=== PATIENT | female | born 1965 | race Caucasian/White ===

== ENCOUNTER 2016-09-23 09:08 | Emergency (ER) | payer OTHER ==
[~2016-09-23] VITALS: Ht 162.6 cm; Wt 70.3 kg
[2016-09-23 09:29] VITALS: BP 143/98
[2016-09-23] MEDS ORDERED: PROPRANOLOL HCL10 M1 PO (09:53)
[2016-09-23] MEDS ORDERED: SEROQUEL300 M1 PO (09:53)
[2016-09-23] MEDS ORDERED: VALIUM2 M1 PO (09:53)
[2016-09-23] MEDS ORDERED: LEXAPRO10 M1 PO (09:53)
--- NOTE | 2016-09-23 09:54 | ED GENERAL ADULT ---
History of Present Illness General Chief Complaint: General Adult Stated Complaint: REFILL MEDS Source: patient Exam Limitations: no limitations Vital Signs & Intake/Output Vital Signs & Intake/Output Vital Signs Date Time Temp Pulse Resp B/P Pulse O2 O2 Flow FiO2 Ox Delivery Rate 09/23 0929 97.0 81 20 143/98 97 Room Air Allergies Coded Allergies: aspirin (Severe, DIFF BREATHING 09/23/16) morphine (Severe, DIFFICULTY BREATHING 09/23/16) Uncoded Allergies: ?SOMETHING IN EPIDURAL (Severe, HYPOTENSIVE AND SWELLING 11/25/10) NARCAINE (Severe, RESPIRATORY DIFFICULTY 09/23/16) SEASONAL AND ENVIRONMENTAL (11/25/10) Reconcile Medications Diazepam (Valium) 2 MG TABLET 1 TAB PO BID ANXIETY Escitalopram Oxalate (Lexapro) 10 MG TABLET 1 TAB PO DAILY DEPRESSION Propranolol HCl 10 MG TABLET 1 TAB PO BID DEPRESSION Quetiapine Fumarate (Seroquel) 300 MG TABLET 2 TAB PO QPM DEPRESSION Triage Note: TRIAGE: PT TO ER C/C REQUESTING REFILL MEDICATIONS S/P RECENT MOVE FROM [place]. [facility] HAD INTAKE APPT AT [facility] THIS MORNING BUT WAS ADVISED THEY COULD NOT REFILL THE PRESCRIPTION YET, WAS REFERRED TO URGENT CARE [facility]CROSS FROM [facility]. [facility] THEY TOLD HER THEY DON'T PRESCRIBE PSYCH MEDS AND WAS REFERRED TO ER. TAKES: SEROQUEL 300 MG X 2 TABS QPM LEXAPRO 10 MG DAILY PROPANOLOL 10 MG BID VALIUM 2 MG TIDPRN Triage Nurses Notes Reviewed? yes HPI: Patient recently moved here from [place]. Patient has appointment with [facility] this morning for an initial evaluation. Patient was told that she could not receive refills for her medications after just the initial visit. Patient was then sent to a walk-in center. The walk-in centers told her that they could not refill medications and that she needs to go to the emergency room. Patient denies any suicidal or homicidal ideations. Patient denies any hallucinations. Past History Travel History Traveled to [place] past 21 day No Medical History Any Pertinent Medical History? 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 No Review of Systems Review of Systems Constitutional: Reports: no symptoms. Respiratory: Reports: no symptoms. Cardiovascular: Reports: no symptoms. GI: Reports: no symptoms. Neurological/Psychological: Reports: no symptoms. Immunologic/Allergic: Reports: no symptoms. Physical Exam Physical Exam General Appearance: well developed/nourished, alert, awake Eyes: Bilateral: PERRL, EOMI. Neck: normal inspection, supple, full range of motion Respiratory: normal breath sounds, chest non-tender, no respiratory distress, lungs clear Cardiovascular: regular rate/rhythm, normal peripheral pulses Neurologic/Psych: no motor/sensory deficits, awake, alert, oriented x 3, normal gait, normal mood/affect Core Measures ACS in differential dx? No CVA/TIA Diagnosis: No Severe Sepsis Present: No Septic Shock Present: No Progress Differential Diagnoses I considered the following diagnoses in my evaluation of the patient: [ Medication refill] Plan of Care: Refill medicine Initial ED EKG: none Departure Departure Disposition: HOME OR SELF CARE Condition: Stable Clinical Impression Primary Impression: Medication refill Referrals: UNKNOWN (PCP/Family) Additional Instructions: FOLLOW UP WITH [facility] RETURN FOR ANY [facility]NER[facility] Departure Forms: Customer Survey General Discharge Information Prescriptions: Current Visit Scripts Quetiapine Fumarate (Seroquel) 2 TAB PO QPM #60 TAB Escitalopram Oxalate (Lexapro) 1 TAB PO DAILY #30 TAB Propranolol HCl 1 TAB PO BID #60 TAB Diazepam (Valium) 1 TAB PO BID #90 TAB Critical Care Note Critical Care Note Critical Care Time: non-applicable
== END 2016-09-23 09:56 ==
LOC: ERH 09:08
DX: Z76.0 Encounter for issue of repeat prescription (principal)
CPT/HCPCS: 99281

== ENCOUNTER 2016-10-19 06:53 | Emergency (ER) | payer OTHER ==
[~2016-10-19] VITALS: Ht 162.6 cm; Wt 72.6 kg
[~2016-10-19 06:53] MED LIST: LEXAPRO10 M1 PO; PROPRANOLOL HCL10 M1 PO; SEROQUEL300 M1 PO; VALIUM2 M1 PO
[2016-10-19 07:10] VITALS: BP 145/87
--- NOTE | 2016-10-19 07:17 | ED GENERAL ADULT ---
History of Present Illness General Chief Complaint: General Adult Stated Complaint: REQUEST MED REFIL APT TO [facility] Source: patient, old records Exam Limitations: no limitations Vital Signs & Intake/Output Vital Signs & Intake/Output Vital Signs Date Time Temp Pulse Resp B/P Pulse O2 O2 Flow FiO2 Ox Delivery Rate 10/19 0710 97.5 100 20 145/87 96 Room Air Allergies Coded Allergies: aspirin (Severe, DIFF BREATHING 09/23/16) morphine (Severe, DIFFICULTY BREATHING 09/23/16) Uncoded Allergies: ?SOMETHING IN EPIDURAL (Severe, HYPOTENSIVE AND SWELLING 11/25/10) NARCAINE (Severe, RESPIRATORY DIFFICULTY 09/23/16) SEASONAL AND ENVIRONMENTAL (11/25/10) Reconcile Medications Diazepam (Valium) 2 MG TABLET 1 TAB PO BID ANXIETY Escitalopram Oxalate (Lexapro) 10 MG TABLET 1 TAB PO DAILY DEPRESSION Escitalopram Oxalate (Lexapro) 10 MG TABLET 1 TAB PO DAILY DEPRESSION Propranolol HCl 10 MG TABLET 1 TAB PO BID DEPRESSION Propranolol HCl 10 MG TABLET 1 TAB PO BID DEPRESSION Quetiapine Fumarate (Seroquel) 300 MG TABLET 2 TAB PO QPM DEPRESSION Quetiapine Fumarate (Seroquel) 300 MG TABLET 2 TAB PO QPM DEPRESSION Triage Note: PT TO ED REQEUSTING MED REFILL OF "PSYCH MEDS". Triage Nurses Notes Reviewed? yes HPI: Patient presents requesting refill of her medications. Patient is new patient to [facility] and she had her first appointment but she is scheduled for her second and they will not refill her medications until after her second visit. Patient denies any suicidal or homicidal ideations. Patient states that she still has more of the Valium but needs the propranolol, Lexapro and Seroquel. Past History Travel History Traveled to [place] past 21 day No Medical History Any Pertinent Medical History? 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 No Review of Systems Review of Systems Constitutional: Reports: no symptoms. Respiratory: Reports: no symptoms. Cardiovascular: Reports: no symptoms. GI: Reports: no symptoms. Musculoskeletal: Reports: no symptoms. Neurological/Psychological: Reports: no symptoms. Immunologic/Allergic: Reports: no symptoms. Physical Exam Physical Exam General Appearance: well developed/nourished, alert, awake, anxious Head: atraumatic Eyes: Bilateral: PERRL, EOMI. Respiratory: normal breath sounds, chest non-tender, no respiratory distress, lungs clear Cardiovascular: regular rate/rhythm, normal peripheral pulses Neurologic/Psych: no motor/sensory deficits, awake, alert, oriented x 3, normal gait, normal mood/affect Core Measures ACS in differential dx? No CVA/TIA Diagnosis: No Severe Sepsis Present: No Septic Shock Present: No Progress Differential Diagnoses I considered the following diagnoses in my evaluation of the patient: [MED REFIL ] Plan of Care: REFILL MEDS Initial ED EKG: none Departure Departure Disposition: HOME OR SELF CARE Condition: Stable Clinical Impression Primary Impression: Medication refill Referrals: PATIENT HAS NO PRIMARY CARE DR (PCP/Family) Additional Instructions: follow up with [facility] Departure Forms: Customer Survey General Discharge Information Prescriptions: Current Visit Scripts Escitalopram Oxalate (Lexapro) 1 TAB PO DAILY #30 TAB Propranolol HCl 1 TAB PO BID #60 TAB Quetiapine Fumarate (Seroquel) 2 TAB PO QPM #60 TAB Critical Care Note Critical Care Note Critical Care Time: non-applicable
[2016-10-19] MEDS ORDERED: PROPRANOLOL HCL10 M1 PO (07:18)
[2016-10-19] MEDS ORDERED: LEXAPRO10 M1 PO (07:18)
[2016-10-19] MEDS ORDERED: SEROQUEL300 M1 PO (07:18)
== END 2016-10-19 07:22 ==
LOC: ERH 06:53
DX: Z76.0 Encounter for issue of repeat prescription (principal)
CPT/HCPCS: 99281

== ENCOUNTER 2017-01-20 21:12 | Inpatient (IN) | payer OTHER ==
[~2017-01-20] VITALS: Ht 157.5 cm; Wt 79.8 kg
--- NOTE | 2017-01-20 22:02 | NUR ---
PER PT MOVED TO [facility] AND GOT A JOB RAN OUT OF [employer] AND HAS NOT BEEN RIGHT SINCE APPROX 1.5 MONTHS. HAVING VISUAL AND AUDITORY HALLUCINATIONS NO SI NO HI. PT REPORTS SHE JUST WANTS TO GET BETTER. JUST FLEW IN FROM [place]
--- NOTE | 2017-01-20 22:09 | ED PSYCHIATRIC COMPLAINT ---
See Addendum History of Present Illness General Chief Complaint: Psychiatric Related Complaint Stated Complaint: NEEDS PSYCH EVAL Source: patient, old records Exam Limitations: no limitations Vital Signs & Intake/Output Vital Signs & Intake/Output Vital Signs Date Time Temp Pulse Resp B/P B/P Pulse O2 O2 Flow FiO2 Mean Ox Delivery Rate 01/20 2203 97.8 96 22 162/96 98 ED Intake and Output 01/21 0000 01/20 1200 Intake Total Output Total Balance Patient 148 lb Weight Allergies Coded Allergies: aspirin (Severe, DIFF BREATHING 09/23/16) morphine (Severe, DIFFICULTY BREATHING 09/23/16) procaine (ANAPHYLAXIS 01/20/17) Uncoded Allergies: ?SOMETHING IN EPIDURAL (Severe, HYPOTENSIVE AND SWELLING 11/25/10) Reconcile Medications Escitalopram Oxalate (Lexapro) 10 MG TABLET 1 TAB PO DAILY DEPRESSION Propranolol HCl 10 MG TABLET 1 TAB PO BID TREMORS (Reported) Triage Note: PER PT MOVED TO [facility] AND GOT A JOB RAN OUT OF [facility] AND HAS NOT BEEN RIGHT SINCE APPROX 1.5 MONTHS. HAVING VISUAL AND AUDITORY HALLUCINATIONS NO SI NO HI. PT REPORTS SHE JUST WANTS TO GET BETTER. JUST FLEW IN FROM [place] Triage Nurses Notes Reviewed? yes HPI: Patient presents with auditory and visual hallucinations. Patient states that she has had a recent admission to a psychiatric institution in [place] for the same. Patient states that she was given Latuda but then was not given a prescription home with. Patient states that her symptoms really started when she moved from [place] to [facility]. Patient states that she was on Seroquel but that seemed to stop working. Patient states that she was suicidal while in [place] but no longer is. Patient denies any homicidal ideations. Patient has been off all of her medications. Past History Travel History Traveled to [facility] past 21 day No Medical History Any Pertinent Medical History? 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 No Review of Systems Review of Systems Constitutional: Reports: no symptoms. EENTM: Reports: no symptoms. Respiratory: Reports: no symptoms. Cardiovascular: Reports: no symptoms. GI: Reports: no symptoms. Genitourinary: Reports: no symptoms. Musculoskeletal: Reports: no symptoms. Skin: Reports: no symptoms. Neurological/Psychological: Reports: see HPI. Hematologic/Endocrine: Reports: no symptoms. Immunologic/Allergic: Reports: no symptoms. All Other Systems: Reviewed and Negative Physical Exam Physical Exam General Appearance: well developed/nourished, mild distress Head: atraumatic, normal appearance Eyes: Bilateral: PERRL, EOMI. Ears, Nose, Throat: normal pharynx, normal ENT inspection, hearing grossly normal Neck: normal inspection, supple, full range of motion Respiratory: normal breath sounds, no respiratory distress, lungs clear Cardiovascular: regular rate/rhythm, normal peripheral pulses Gastrointestinal: normal bowel sounds, soft, non-tender Extremities: normal range of motion Neurological/Psychiatric: no motor/sensory deficits, awake, alert, calm, oriented x 3 Appearance/Memory/Insight: appropriate appearance, appropriate insight Behavoir/Eye Contact/Speech: normal speech, good eye contact Thoughts/Hallucinations: normal thought pattern, auditory hallucinations Skin: intact, normal color, warm/dry SAD PERSONS Done? CRISIS CONSULT OBTAINED Progress Differential Diagnosis: drug intoxication, drug overdose, drug withdrawal, electrolyte abnormality Plan of Care: Orders Procedure Date/time Status ED CRISIS PSYCH CONSULT 01/20 2222 Active URINE DRUGS OF ABUSE 01/20 2209 Complete URINALYSIS 01/20 2209 Complete ETHANOL 01/20 2209 Complete COMPREHENSIVE METABOLIC PANEL 01/20 2209 Complete CBC WITHOUT DIFFERENTIAL 01/20 2209 Complete Current Medications Sig/Rosalio Start time Last Medication Dose Stop Time Status Admin Potassium Chloride 40 MEQ ONCE ONE 01/21 15 UNVr (K-Dur) 01/21 0016 Laboratory Tests 01/20/17 2310: Urine Opiates Screen < 100.00, Methadone Screen < 40, Barbiturate Screen < 60, Ur Phencyclidine Scrn < 6.00, Amphetamines Screen 127, U Benzodiazepines Scrn < 85, Urine Cocaine Screen < 50, Urine Cannabis Screen < 5.00, Urine Color YEL, Urine Clarity HAZY H, Urine pH 6.0, Ur Specific [place] <= 1.005, Urine Protein NEG, Urine Ketones NEG, Urine Nitrite NEG, Urine Bilirubin NEG, Urine Urobilinogen 0.2, Ur Leukocyte Esterase SMALL H, Ur Microscopic SEDIMENT EXAMINED, Urine WBC RARE, Ur Epithelial Cells MOD H, Urine Bacteria RARE H, Urine Hemoglobin NEG, Urine Glucose NEG 01/20/17 2250: Anion Gap 12, Estimated GFR > 60, BUN/Creatinine Ratio 13.3, Glucose 96, Calcium 9.4, Total Bilirubin 0.7, AST 29, ALT 63 H, Alkaline Phosphatase 156 H, Total Protein 7.2, Albumin 4.2, Globulin 3.0, Albumin/Globulin Ratio 1.4, CBC w Diff NO MAN DIFF REQ, RBC 4.68, MCV 89.5, MCH 30.1, RDW 13.4, MPV 7.4, Gran % 56.3, Lymphocytes % 28.3, Monocytes % 11.0 H, Eosinophils % 4.0, Basophils % 0.4, Absolute Granulocytes 4.9, Absolute Lymphocytes 2.5, Absolute Monocytes 1.0 H, Absolute Eosinophils 0.3, Absolute Basophils 0, PUBS MCHC 33.7, Serum Alcohol < 10.0 Departure Departure Disposition: STILL A PATIENT Condition: Stable Clinical Impression Primary Impression: Bipolar 1 disorder Secondary Impressions: Hypokalemia Referrals: PATIENT HAS NO PRIMARY CARE DR (PCP/Family) Departure Forms: Customer Survey General Discharge Information
[2017-01-20] MEDS ORDERED: PROPRANOLOL HCL10 M1 PO (22:49)
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
--- NOTE | 2017-01-20 22:55 | NUR ---
PT WILL BE CHANGED AND MOVED TO ROOM 14 WHEN AVAILABLE. INSTRUCTED ON NEED FOR URINE SAMPLE AT THIS TIME.
[2017-01-20 22:56] LABS: ABSOLUTE BASOPHIL COUNT 0 /CUMM (0.0-0.2); ABSOLUTE EOSINOPHIL COUNT 0.3 /CUMM (0.0-0.7); ABSOLUTE GRANULOCYTE CT 4.9 /CUMM (1.4-6.5); ABSOLUTE LYMPH COUNT 2.5 /CUMM (1.2-3.4); BASOPHIL % 0.4 % (0.0-2.0); GRANULOCYTE % 56.3 % (42.2-75.2); HEMATOCRIT 41.9 % (37-47); MEAN CORPUSCULAR HGB 30.1 PG (27.0-31.0); MEAN CORPUSCULAR HGB CONC 33.7 G/DL (33.0-37.0); MEAN CORPUSCULAR VOLUME 89.5 FL (81.0-99.0); MEAN PLATELET VOLUME 7.4 FL (7.4-10.4); PLATELET COUNT 319 /CUMM (130-400); RBC DISTRIBUTION WIDTH 13.4 % (11.5-14.5); RED BLOOD CELL CT 4.68 /CUMM (4.20-5.40); WHITE BLOOD CELL COUNT 8.8 /CUMM (4.8-10.8)
--- NOTE | 2017-01-20 23:06 | NUR ---
REPORT TO CINDY Mcnamara RN AND ANSWERED ALL QUESTIONS.
--- NOTE | 2017-01-21 01:31 | NUR ---
PT AWAKENED FRO VS MED WITH PO POTASSIUM ORDERED, PER REQUEST PT PREFERS NICORETTE GUM RATHER THAN PATCH, PT REPORTEDLY SMOKES 2 PACKS PER DAY.
--- NOTE | 2017-01-21 06:10 | NUR ---
SPENT A COMF NIGHT NO NOTED AH/[facility] WILL MONITOR
--- NOTE | 2017-01-21 07:27 | NUR ---
ASSUMED CARE OF PT AT THIS TIME PT APPEARS TO BE SLEEPING AT THIS TIME WITH REGULAR RESPIRATIONS NOTED AND EQUAL CHEST RISE AND FALL NOTED. SITTER PRESENT FOR SAFETY/OBSERVATION. AWAITING CRISIS EVAL/DISPO TODAY
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
--- NOTE | 2017-01-21 09:28 | NUR ---
PT ASKING FOR PAIN MED NURSE INFORMED
--- NOTE | 2017-01-21 09:30 | NUR ---
DR TAMAYO INFORMED OF PT REQUEST FOR PAIN MEDICATION
--- NOTE | 2017-01-21 09:46 | NUR ---
MEDICATED WITH IBUPROPHEN PER SEP. PT REQUESTING SAME FOR HEADACHE
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
--- NOTE | 2017-01-21 10:57 | NUR ---
PHARMACY CALLED FOR MEDS - [facility]FF NURSE [facility]ESTHET[facility] MEDS IN 15 MIN.
--- NOTE | 2017-01-21 11:12 | NUR ---
REPORT GIVEN TO ESDRAS PAEZ
--- NOTE | 2017-01-21 11:20 | NUR ---
ASSUMED CARE OF THIS PT FROM ESDRAS LE. PT HAS MEDS DUE AND PHARMACY WILL HAVE HTEM READY IN 10 MINUTES.
--- NOTE | 2017-01-21 11:51 | NUR ---
PT MEDICATED WITH SEROQUEL 100MG, INDERAL 10MG AND TYLENOL 650MG FOR RIB PAIN. PT ASKED WHY SHE WASN'T GETTING HER LEXAPRO. PT CALM AND COOPERATIVE AT THIS TIME. SITTER AT DOOR. PT AWAITING TRANSFER DOWN TO [facility].
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
--- NOTE | 2017-01-21 13:40 | NUR ---
PT AWOKEN AND MEDICATED WITH POTASSIUM 40mEQ. PT ADVISED THAT SHE NEEDED TO TAKE THIS MEDICATION BEFORE SHE CAN BE TRANSFERRED DOWNSTAIRS. SITTER AT DOOR.
--- NOTE | 2017-01-21 14:55 | NUR ---
PT ASLEEP AT THIS TIME. RESPIRATIONS EQUAL AND UNLABORED. CRISIS TO CALL REPORT TO CPS. SITTER AT DOOR.
--- NOTE | 2017-01-21 16:15 | NUR ---
PT SITTING UP IN BED EATING DINNER TRAY. PT CALM AND COOPERATIVE. PT IS ANTICIPATING TRANSFER DOWN TO [facility] THIS EVENING. SITTER AT DOOR.
[2017-01-21] MEDS ORDERED: VALIUM2 M1 PO (18:40)
[2017-01-21] MEDS ORDERED: SEROQUEL XR300 M1 PO (18:42)
[2017-01-21] MEDS ORDERED: LATUDA120 M1 PO (18:43)
--- NOTE | 2017-01-21 18:47 | NUR ---
PT IS CALM, PLEASANT AND COOPERATIVE AND ONLY COMPLAINT IS "I'M EXHAUSTED", WHEN ASKED DIRECTLY DENIES SI/HI/HALLUCINATIONS AND WOULD INFORM STAFF IF ANY OF THAT CHANGED, FEELS SAFE HERE AND MOTIVATED FOR TREATMENT. MEDICATIONS RECONCILED WITH PT. MOOD IS STABLE WITH FLAT AFFECT, REPORTS NOT FEELING WELL AND MORE DEPRESSED AND WANTING TREATMENT AND HER MEDICATION REGIMENT ADDRESSED. NO ANXIETY OR AGITATION REPORTED OR OBSERVED, RESTING QUIETLY IN BED.
[2017-01-21 19:45] VITALS: BP 101/63
--- NOTE | 2017-01-21 21:14 | NUR ---
PT IS MOSTLY ISOLATIVE AND WITHDRAWN THIS EVENING, REMAINING IN BED FOR MOST OF SHIFT. COOPERATIVE AND COMPLIANT WITH STAFF. MINIMAL INTERACTION WITH PEERS. NO COMPLAINTS OR SI REPORTED. PT HAS A STABLE MOOD AND FLAT/CONSTRICTED AFFECT.
--- NOTE | 2017-01-22 04:08 | NUR ---
AWAKE COUPLES TIMES DURING THE NIGHT.
[2017-01-22 08:34] VITALS: BP 120/68
[2017-01-22 12:29] VITALS: BP 100/64
--- NOTE | 2017-01-22 13:02 | NUR ---
PATIENT IS CALM AND COOPERATIVE WITH STAFF AND UNIT RULES. PATIENT ISOLATIVE STAYED IN ROOM MOST OF THE DAY, DID NOT GO TO GROUPS. NORMAL APETITE. STABLE MOOD WITH FLAT AFFECT. NO REPORTS OF SI.
--- NOTE | 2017-01-22 13:19 | CPS MD/APRN INITIAL ASSE PSYCH ---
Psychiatric Admission Printing Assistant's Note Reviewed: Yes Patient Seen and Examined: Yes Identifying Information: Patient is a 51-year-old , female with a self-reported history of bipolar disorder who self presented to the [facility] ED on 01/21/17 for auditory hallucinations and thoughts of self harm. Patient was voluntarily admitted to inpatient psychiatry. Chief Complaint: "I need new medications and a place to live." Reaction to Hospitalization: neutral History of Present Illness Onset of Illness: Over 20 years ago, per patient Circumstances Leading to Admission: Patient reports she recently returned from [place] where her car broke down. 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 She did not elaborate on circumstances. Stated that from [place], police put her on a plane and flew her back to [place]. Also stated that the same police "jumped me." She reported that the police, FBI and her ex- are involved in a conspiracy against her. Stated that the FBI placed a "tracking" chip in her head s/p brow-lift surgery "years ago". Patient admitted to ongoing auditory and visual hallucinations. Stated she occasionally has command auditory hallucinations. She denied these at present but did admit to experiencing current AH and VH. She would not describe the content of AVH. She denies present SI/HI. + paranoia and delusional thought content. Problem(s) Justifying Need for Admission: +AH/VH, SI, off medications, no outpatient providers Past Psychiatric History Past Diagnosis(es)- if any: Bipolar disorder with psychotic features Past Precipitating Factors- if any: unknown - Include inpatient and outpatient treatment Treatment History: --hx of multiple inpatient psychiatric hospitalizations in various states including, [place] recently, [place] last year and also [place] previously. --reports outpatient tx at [facility] > 18 years ago. --denies hx of substance abuse tx --no current outpatient tx; last seen by a psychiatrist in [place] x 4 months ago per her report. History of Suicide Attempts or Gestures patient reports 1 prior suicide attempt by OD on "28 Klonopin" in [place] about a year ago. denied further attempts. Substance Abuse History: --denied alcohol and illicit drug use. --reports smoking 2 ppd of cigarettes (declined nicotine patch, open to nicotine gum). Allergies: Coded Allergies: aspirin (Severe, DIFF BREATHING 09/23/16) morphine (Severe, DIFFICULTY BREATHING 09/23/16) procaine (ANAPHYLAXIS 01/20/17) Uncoded Allergies: ?SOMETHING IN EPIDURAL (Severe, HYPOTENSIVE AND SWELLING 11/25/10) Home Med List: Patient reports she ran out of Lexapro, Seroquel and Inderal 2 months ago. Since , has not been on medications. 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 - #1 Recognizing dangerous situations. - #2 Coping Skills. - #3 Basic information about quitting. Status of Tobacco Cessation Counseling: #1, #2 AND #3 Completed Cessation Med Status Nicotine Gum Ordered Alcohol Screening - ETOH screen POS if BAL >=80 or Audit-C>= M4/F3 Audit-C Score from Diag Assess: 0 Blood Alcohol Level: Laboratory Tests 01/20 2250 Toxicology Serum Alcohol (<10 MG/DL) < 10.0 Alcohol Use Screening Results: Neg per Audit C &/or BAL - If ETOH counseling indicated - the following topics are required. - #1 Express concern about the patient's - drinking at unhealthy levels, include informing - of national norms for moderate drinking: - men <= 14 drinks/week, max 4 drinks/occasion - women <= 7 drinks/week, max 3 drinks/occasion - #2 Providing feedback, including linking alcohol to - negative physical effects (liver injury, hypertension) - negative emotional effects (relationship problems and - depression) - negative occupational consequences (reduced work - performance) - #3 Advising the patient to abstain from alcohol or - to drink below national norms for moderate drinking - (as listed above). Status of ETOH Use Counseling: #1, #2 AND #3 Completed. Metabolic Screening - Screen if on a Neuroleptic Medication - Metabolic screening should include: - Blood Pressure, BMI, Glucose or Hgb A1c, & a - Lipid profile from within the past 365 days. Metabolic Screening ([X]) Not Applicable, patient not on a neuroleptic. OR () Patient on a neuroleptic(s) . Enter below results for Glucose or Hemoglobin A1C, and lipid panel if obtained during the last 365 days. BMI: Blood Pressure: 100/64 Laboratory Results (If applicable): Lab Cholesterol 206 MG/DL H 01/20/17 2250 Cholesterol/HDL Ratio 5 % H 01/20/17 2250 Glucose 96 mg/dL 01/20/17 2250 HDL Cholesterol 42 mg/dL 01/20/17 2250 LDL Cholesterol, Calc 131 mg/dL H 01/20/17 2250 Triglycerides 169 mg/dL H 01/20/17 2250 Exam and Plan Mental Status Examination Ambulation Status: ambulates freely Appearance: 51 y/o CF who appears slightly older than stated age; disheveled; blonde hair, wearing hospital issued blue paper scrubs. Attitude towards examiner: cooperative Psychomotor activity: no retardation or agitation Behavior: normal Quality of speech: normal in rate, tone, volume Affect: full, non-labile Mood: "depressed" Suicidal Ideation: denies Homicidal Ideation: denies Hallucinations: +AH and VH. Denies AH are command in nature, would not elaborate on content of voices or VH. Paranoid/Delusional Material: + paranoia that the PD, FBI and her ex- have a conspiracy against her Difficulties with thought organization: circumstantial thoughts Insight: poor to fair Judgment: poor to fair Orientation: x 3 Cognition: grossly intact Memory Function: grossly intact Estimate of intellectual functioning: average Assets/Strengths Patient Identified Assets/Strengths: --agreeable to start medications --would like to be connected to outpatient tx post-discharge --educated --recent/past work experience; likely able to find work if adherent to medications Impression/Plan Impression and Plan: 51-year-old CF with a history of bipolar disorder with psychotic features, presented to ED with worsening depression, auditory and visual hallucinations, and paranoid delusions in the context of medication non-adherence and heightened stressors (recent unemployment, homelessness, no outpatient provider, limited supports). Patient requires inpatient psychiatic hospitalization for stabilization, monitoring and safety; hopefully will reconstitute with reinitiation of psychotropics. - Include all active medical diagnosis that require tx DSM 5 Diagnosis(es): Bipolar disorder, MRE depressed with psychotic features. R/O Schizoaffective disorder Nicotine use disorder Hx endometriosis - Initial Tx Plan for Active Psych & Medical Conditions Treatment Plan: --monitor for safety, mood, SI, psychosis. --discontinue seroquel, patient reported having little effect on 600mg nightly and does not wish to maximize dose. Start Zyprexa 5mg BID for hallucinations/ paranoia/delusions. States she understands the r/b/se profiles, including the risks of irreversible movement disorders, metabolic syndrome, weight gain, diabtes, HTN and HLD. Patient agreeable to trial. --start Ativan 0.5mg Q6H for anxiety/agitation/insomnia. --D/C nicotine patch; patient declined this. Agreeable to increasing Nicotine gum to 4mg Q2H PRN for nicotine craving. Tobacco cessation counseling completed. --obtain collateral from friends/family. --H&P per senior financial reporting analyst team. --once symptoms are clinically stable, refer to appropriate level of outpatient psychiatric tx. --explore housing options as she is homeless. - Factors that would help patient function - in a less restrictive setting. Factors: medication/tx adherence connect patient with outpatient tx post-discharge housing employment stable supports
--- NOTE | 2017-01-22 13:26 | History & Physical ---
General Information and HPI MD Statement: I have seen and personally examined JACQUE SMITH and documented this H&P. The patient is a 51 year old F who presented with a patient stated chief complaint of "I to get better". Source of Information: patient Exam Limitations: no limitations History of Present Illness: 51-year-old female just flew back from [place] when she moved started a new job, over there she ran out of the [employer] but not feeling right for the last month and a half having visual and auditory hallucinations issue and needs help to reassess her treatment. Allergies/Medications Allergies: Coded Allergies: aspirin (Severe, DIFF BREATHING 09/23/16) morphine (Severe, DIFFICULTY BREATHING 09/23/16) procaine (ANAPHYLAXIS 01/20/17) Uncoded Allergies: ?SOMETHING IN EPIDURAL (Severe, HYPOTENSIVE AND SWELLING 11/25/10) Home Med list Diazepam (Valium) 2 MG TABLET 2 MG PO PRN ANXIETY (Reported) Escitalopram Oxalate (Lexapro) 10 MG TABLET 1 TAB PO DAILY DEPRESSION Lurasidone HCl (Latuda) 120 MG TABLET 120 MG PO DAILY MOOD (Reported) Propranolol HCl 10 MG TABLET 1 TAB PO BID TREMORS (Reported) Quetiapine Fumarate (Seroquel XR) 300 MG TAB.ER.24H 600 MG PO DAILY SLEEPINESS (Reported) PER PT 600MG NIGHTLY Compliance With Home Meds: POOR Past History Travel History Traveled to [place] past 21 day No Medical History Neurological: NONE EENT: NONE Cardiovascular: NONE Respiratory: NONE Gastrointestinal: NONE Hepatic: NONE Renal: NONE Musculoskeletal: NONE Psychiatric: bipolar disease Endocrine: NONE Blood Disorders: NONE Cancer(s): NONE 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 Exam & Diagnostic Data Last 24 Hrs of Vital Signs/I&O Vital Signs Date Time Temp Pulse Resp B/P B/P Pulse O2 O2 Flow FiO2 Mean Ox Delivery Rate 01/22 1229 79 100/64 01/22 0937 97.2 80 16 120/68 01/22 0834 97.2 80 120/68 07/18 2129 85 101/63 01/21 1945 96.9 85 101/63 01/21 1753 75 16 98/69 95 Room Air 01/21 1451 98.7 78 20 102/57 96 Room Air Intake & Output 01/22 1600 01/22 0800 01/22 0000 Intake Total Output Total Balance Patient 148 lb Weight Physical Exam General Appearance Alert, Oriented X3 Skin No Rashes, No Breakdown HEENT PERRLA, EOMI Neck Supple, No JVD, +2 Carotid Pulse wo Bruit Lymphatic Axillary nl, Cervical nl Cardiovascular Regular Rate Lungs Clear to Auscultation, Normal Air Movement Abdomen Soft, No Tenderness, No Hepatospenomegaly Neurological Exam Findings: Normal Speech, Strength at 5/5 X4 Ext, Normal Tone, Sensation Intact, Cranial Nerves 3-12 NL, Reflexes 2+ Cranial Nerves II through XII: Intact Extremities No Cyanosis, No Edema, Normal Pulses Vascular Normal Pulses, Pulses Symmetrical Last 24 Hrs of Labs/Jef: Laboratory Tests 01/22/17 1253: Sodium Pending, Potassium Pending, Chloride Pending, Carbon Dioxide Pending, Anion Gap Pending 01/21/17 1149: Anion Gap 8 01/20/17 2310: Urine Opiates Screen < 100.00, Methadone Screen < 40, Barbiturate Screen < 60, Ur Phencyclidine Scrn < 6.00, Amphetamines Screen 127, U Benzodiazepines Scrn < 85, Urine Cocaine Screen < 50, Urine Cannabis Screen < 5.00, Urine Color YEL, Urine Clarity HAZY H, Urine pH 6.0, Ur Specific [place] <= 1.005, Urine Protein NEG, Urine Ketones NEG, Urine Nitrite NEG, Urine Bilirubin NEG, Urine Urobilinogen 0.2, Ur Leukocyte Esterase SMALL H, Ur Microscopic SEDIMENT EXAMINED, Urine WBC RARE, Ur Epithelial Cells MOD H, Urine Bacteria RARE H, Urine Hemoglobin NEG, Urine Glucose NEG 01/20/17 2250: Anion Gap 12, Estimated GFR > 60, BUN/Creatinine Ratio 13.3, Glucose 96, Calcium 9.4, Total Bilirubin 0.7, AST 29, ALT 63 H, Alkaline Phosphatase 156 H, Total Protein 7.2, Albumin 4.2, Globulin 3.0, Albumin/Globulin Ratio 1.4, Triglycerides 169 H, Cholesterol 206 H, LDL Cholesterol, Calc 131 H, HDL Cholesterol 42, Cholesterol/HDL Ratio 5 H, TSH &T3 &Free T4 Intrp 1.180, CBC w Diff NO MAN DIFF REQ, RBC 4.68, MCV 89.5, MCH 30.1, RDW 13.4, MPV 7.4, Gran % 56.3, Lymphocytes % 28.3, Monocytes % 11.0 H, Eosinophils % 4.0, Basophils % 0.4, Absolute Granulocytes 4.9, Absolute Lymphocytes 2.5, Absolute Monocytes 1.0 H, Absolute Eosinophils 0.3, Absolute Basophils 0, PUBS MCHC 33.7, Serum Alcohol < 10.0 Laboratory Tests 01/22/17 1253: Sodium Pending, Potassium Pending, Chloride Pending, Carbon Dioxide Pending, Anion Gap Pending Assessment/Plan As Ranked By This Provider Problem List: 1. Hypokalemia 2. Bipolar 1 disorder Miscellaneous Miscellaneous Documentation Attending Case Discussed With: MOLINA GUPTA,HERNÁN Spangler Primary Care Physician: PATIENT HAS NO PRIMARY CARE DR Patient sees these Specialists Psychiatry Level of Patient Care: [facility] Consults Needed: Consulting Specialty: Psychiatry Consulting Physician: Hernán Cabrales MD Reason for Consult: visual and auditory hallucinations. Bipolar disorder
--- NOTE | 2017-01-22 15:28 | SOCIAL WORKER PROG NOTE PSYCH ---
Social Work Progress Note Progress Note Debbie reports that she is doing "so/so." Stated she slept well. Appetite is slightly decreased. She told me she was here to get a medication change, due to her Seroquel not working. Asked how she knew her medication wasn't working? She said she was hearing voices and experiencing racing thoughts and this has been going on for 2 months. She also mentioned having some visual hallucinations. She then stated that there is a conspiracy and everyone is out to get her. When asked who? She said the FBI. She said this has all been happening since her ex did the surgery on her brows. She mentioned that there was a chip in her head as well. She reports that she is not safe anywhere and that she left [place] prior to admission here, stating the police beat her up and then put her on a plane here. She doesn't really identify family and friends in ID. She mentioned she lost numbers to contacts due to having her phone thrown away in [place]. She also had her car impounded there. It seems like she has been traveling from [facility] [place] [facility] due to not feeling safe. Prior to [place] she stated she was coming from [facility]. She sounds hopeless and defeated about people constantly being after her.
--- NOTE | 2017-01-22 15:28 | SOCIAL WORKER TX PLAN PSYCH ---
Treatment Plan - Please Document: - Evidence that there is ongoing collaboration between - the patient and the interdisciplinary team, - including the patient's active participation and - responsibility for engaging in the treatment regimen, - and that the treatment plan is individualized and - relevant to the patient's conditions. - Treatment plan should reflect documentation indicating - that all active therapeutic efforts are included. Strengths/Capabilities: supportive friend, wants help Physical Limitations (Interventions): none reported Patient Identified Trmt Goals: "I needed to get a medication change" Discharge Plan: homeless, needs a referral to [facility], or [facility] Problem/Goals #1 Problem #1: psychosis Goal (Short Term): patient will explore medication changes to help hallucinations/ delusions Goal (Retirement): patient will be able to committ to a plan for continued treatment Interventions: patient will be offered medication management with the SYSTEMS CONSULTANT, groups on symptom management, coping skills, focus group, goals group, relaxation. The professor of social work will assess thinking daily. Discuss plans for aftercare and do referrals as needed. DSM5/PS Stressors/Medical Prob Diagnosis' (DSM 5, Stressors, Medical): F31.5 Bipolar I Depressed with psychotic features Current GAF: 25 Treatment Team - Responsibilities of members of the treatment team include: - Medication Management- MD or SYSTEMS CONSULTANT - Medication Administration and Monitoring- Nurse - Group Therapy- Occupational Therapist - 1:1 Therapy,Disch Planning,family involvement-Concrete Wall Grinder Operator
[2017-01-22 16:26] VITALS: BP 118/71
--- NOTE | 2017-01-22 17:39 | NUR ---
PT IS CALM, COOPERATIVE WITH STAFF AND PEERS, AND COMPLIANT WITH UNIT RULES. OFTEN IN [place], INTERACTING WITH OTHERS. MOOD IS STABLE, AFFECT APPEARS EUTHYMIC TO FULL RANGE, COMMUNICATION IS ORGANIZED AND APPEARS NORMAL IN ALL RESPECTS, AND APPETITE IS NORMAL. PT DENIES SI AT THIS TIME.
[2017-01-22 19:47] VITALS: BP 136/78
--- NOTE | 2017-01-23 06:54 | NUR ---
PT ANXIOUS, WANTS A STRONGER PAIN MED AND AN ANTI-BIOTIC FOR TOOTH PAIN. PT UP SEVERAL TIMES FOR SOMETHING TO EAT. PRN NEURONTIN AND PRN MOTRIN GIVEN IN THE AM.
[2017-01-23 08:34] VITALS: BP 125/79
--- NOTE | 2017-01-23 09:24 | NUR ---
PT A/OX3, CALM AND COOPERATIVE, SEEN IN COMMUNITY INTERACTING WITH PEERS AND STAFF, DENIES SI/HI, COMPLAINTS OF AUDITORY AND VISUAL RENAE BUT COPING WITH IT AT THIS TIME, COMMUNICATION APPEARS ORGANIZED, MOOD APPEARS STABLE WITH EUTHYMIC.
--- NOTE | 2017-01-23 11:26 | SOCIAL WORKER PROG NOTE PSYCH ---
Social Work Progress Note Progress Note Pt reiterated the reasoning for coming to the ER, she is vague about all her traveling, and was groggy during our meeting. She reports she lost her insurance id, and EBT card, she wanted to reach out to the police department in [place], to see if they had any of her belongings. She is unclear as to where she wants to go after discharge and we made a referral to crisis and respite, as a possibility she is not interested in 211 services.
[2017-01-23 12:16] VITALS: BP 135/78
--- NOTE | 2017-01-23 13:26 | CP SOUTH PROGRESS NOTE PSYCH ---
Psych (Inpt) Progress Note Progress Note Include the following elements, when applicable: Involvement in the active treatment of the patient with behavioral observations of the patient and the patient's response to the treatment. Review of the ongoing treatment process in the context of the treatment plan. Indication of how multi-disciplinary staff members are carrying out the treatment plan. Plans for future interventions and recommendations for revision of the treatment plan. Liaison with other physicians/providers. Progress Note: I discussed this patient's progress to date, current mental status, treatment process in the context of the treatment plan, and discharge planning with staff/ team in the daily morning inpatient team meeting. I also met with the patient myself in individual session. Current Medications Sig/Rosalio Start time Last Medication Dose Route Stop Time Status Admin Acetaminophen 650 MG Q6P PRN 01/21 1100 AC 01/21 PO 1851 Al Hydroxide/Mg 30 ML Q4-6 PRN PRN 01/21 1100 AC Hydroxide PO Gabapentin 300 MG Q6P PRN 01/21 1100 AC 01/23 PO 0635 Ibuprofen 800 MG Q6P PRN 01/23 1015 AC PO Ibuprofen 600 MG Q6P PRN 01/21 2200 DC 01/23 PO 0635 Lorazepam 0.5 MG Q6-PRN PRN 01/22 1400 AC 01/23 PO 01/29 1359 1217 Nicotine 4 MG Q2P PRN 01/22 1400 AC 01/23 PO 1220 Nicotine 21 MG DAILY 01/22 1000 DC TOP Nicotine 2 MG Q2P PRN 01/21 0145 DC 01/22 PO 1315 Olanzapine 5 MG 0800,2200 01/22 2200 AC 01/23 PO 0849 Olanzapine 2.5 MG Q4 HRS NEEDED PRN 01/22 1500 AC 01/23 PO 1218 Propranolol HCl 10 MG BID 01/21 1053 AC 01/23 PO 0849 Quetiapine Fumarate 100 MG BID 01/21 1053 DC 01/22 PO 0937 Vital Signs Date Time Temp Pulse Resp B/P B/P Pulse O2 O2 Flow FiO2 Mean Ox Delivery Rate 01/23 1216 83 135/78 01/23 0849 76 125/79 01/23 0834 96.4 76 125/79 01/22 2232 83 138/74 01/22 1947 97.5 83 136/78 01/22 1626 78 118/71 A: Chart, progress notes, labs, vital signs and medication list reviewed. Vital signs within normal limits. No new lab results today. Per nursing staff, patient is pleasant and visible in the milieu. Complained of tooth pain requesting pain meds and antibiotics. Shows good behavioral and physical control. Patient seen at 1:41PM. She reports some improvement in tooth pain with PRNs Ibuprofen and Neurontin. Right upper canine appears rotted with some swelling to surrounding gum. She offers no further complaints. Reports cessation of visual hallucinations; however, continues to experience auditory hallucinations of a male voice. She associates this male voice with the police, rather than a specific individual. Denies AH is command in nature or threatening, but reports it increases her anxiety. Reports she is still not thinking clearly, but hallucinations are slowly improving. Reports racing thoughts have lessened. Thought process appeared linear, goal-directed. Remains concerned over where she will return to post discharge given current homelessness. Reviewed options of calling 211 for a longterm intake and [facility]. Patient was agreeable to the latter option, stated she also receives a disability check, $718/month. Hopeful that she can save money to put towards housing in the near future. She continues to reference that the FBI and police are out to get her. Despite paranoia, she seems aware on some level that this belief is only a thought, "I know it's all in my head." Reports paranoia has been ongoing over the last 2 years. States that up until recently, paranoia never interfered with her daily functioning (i.e. effecting work, concentration, etc). She reports passive SI, no plan or intent. Gave safety promise while on unit. Denies active SI. + helplessness. Denies HI and VH. Mood, "sad." Affect calm, appropriate, non-labile. Speech normal in rate, tone and volume. Sleep, "not good, I worked 3rd shift for years." Energy level: "good." Appetite: "it's fine." Made good eye contact. Reports tolerating medications well; denies SEs but also worried about potentially experiencing SEs. Agreed to slowly uptitrate Zyprexa 5mg BID to 5mg QAM and 7.5mg QHS to further target AH/paranoia/mood. Encouraged use of prns for continued racing thoughts/delusions/hallucinations. P: -continue monitoring for safety, mood, SI, psychosis. -increase Zyprexa from 5mg BID to 5mg QAM and 7.5mg QHS for mood stabilization/ psychosis. -continue holding Lexapro until psychosis clears further. -HOT KETTLE TENDER to send referrals to [facility]. -dispo planning per primary team. -HOD consult requested to r/o possible tooth infxn.
[2017-01-23 15:50] VITALS: BP 136/85
[2017-01-23 20:09] VITALS: BP 148/86
--- NOTE | 2017-01-23 22:13 | NUR ---
PT HAS BEEN COMPLIANT WITH STAFF AND UNIT RULES, BUT HAS BEEN WITHDRAWN DURING EVENING SHIFT. PT REPORTED SHORTLY BEFORE VITALS THAT SHE WISHED TO SIGN A 3-DAY PAPER AND SPOKE ABOUT HER CONCERNS PICKING UP AND CONTINUING MEDICATION ONCE DISCHARGED FROM [facility]. PT ALSO REPORTED FEELING SLIGHTLY ANXIOUS. PT HAS DENIED ANY THOUGHTS OF SI WHEN ASKED BY STAFF.
--- NOTE | 2017-01-24 07:35 | NUR ---
PT WAS MOVED TO THIS BED TO MAKE ROOM. PT THOUGHT ABOUT SUBMITTING A 3 DAY PAPER- PT PERSEVERATED ABOUT INABILITY TO PAY FOR MEDS AND TREATMENT AFTER DISCHARGE. PT ENCOURAGED TO WORK WITH SOCIAL WORK. PT WITH SEVERE PAIN AT 0315- PATIENT GIVEN TYLENOL, MOTRIN, AND NEURONTIN PRNS. AT 0415, PT WAS UNABLE TO SLEEP- PT GIVEN ATIVAN 0.5 PRN.
[2017-01-24 08:05] VITALS: BP 136/76
--- NOTE | 2017-01-24 12:00 | SOCIAL WORKER PROG NOTE PSYCH ---
Social Work Progress Note Progress Note Debbie was in bed this morning. She stated she was tired and didn't sleep that well last night. She said she went to bed around 11pm and woke up around 3am. She reports some reduction in symptoms, but expresses hopelessness over her situation with housing and her belongings. She was anxious about getting her EBT card reissued. I offered to call DSS with her. We had difficulty resolving the issue. When we got a sales representative womens health on the phone, she told Debbie she needed to call back and pick a different prompt. We called together and still were not able to get to someone to help. After 1/2 hour we hung up with the intention of calling again later or another day. Debbie said she was ready to just leave yesterday because she didn't see any point in pursuing tx. She said "I'm not going to be able to get my meds anyway." I told her she would probably be able to get her medication without her card if she has her number, they can look it up. She feels that her situation won't change. I encouraged her to be patient, take time to stabilize, and view this as a platform for building off of. Told her running from place to place hasn't worked for her. She seemed ambivalent about the crisis and respite program. I assured her the staff are nice and supportive and it's a safe place to be and step up from a regular care home. Asked if she was feeling safe here? She said "yes and no." She said the environment is ok, but the conspiracy causes her to feel unsafe.
[2017-01-24 12:51] VITALS: BP 140/80
--- NOTE | 2017-01-24 14:00 | NUR ---
PT HAS BEEN COMPLIANT AND COOPERATIVE WITH UNIT RULES. PT HAS BEEN ISAOTLIVE IN ROOM AT TIMES. PT HAS NOT BEEN ATTENDING ANY GROUPS TODAY. PT COMES OUT FOR VITALS AND MEALS. PT MOOD IS STABLE WITH A EUYTHMIC AFFECT. PT DENIES SI THOGUHTS.
--- NOTE | 2017-01-24 14:50 | CP SOUTH PROGRESS NOTE PSYCH ---
Psych (Inpt) Progress Note Progress Note Include the following elements, when applicable: Involvement in the active treatment of the patient with behavioral observations of the patient and the patient's response to the treatment. Review of the ongoing treatment process in the context of the treatment plan. Indication of how multi-disciplinary staff members are carrying out the treatment plan. Plans for future interventions and recommendations for revision of the treatment plan. Liaison with other physicians/providers. Progress Note: I discussed this patient's progress to date, current mental status, treatment process in the context of the treatment plan, and discharge planning with staff/ team in the daily morning inpatient team meeting. I also met with the patient myself in individual session. Current Medications Sig/Rosalio Start time Last Medication Dose Route Stop Time Status Admin Acetaminophen 650 MG .STK-MED ONE 01/241 DC PO 01/24 031 Acetaminophen 650 MG .STK-MED ONE 01/23 1604 DC PO 01/23 1605 Acetaminophen 650 MG Q6P PRN 01/21 1100 DC 01/24 PO 1212 Al Hydroxide/Mg 30 ML Q4-6 PRN PRN 01/21 1100 AC Hydroxide PO Amoxicillin/ 875 MG BID 01/23 2200 CAN Clavulanate Potassium PO Clindamycin 300 MG Q8 01/23 2200 AC 01/24 PO 01/28 1401 1343 Gabapentin 400 MG 0800,1400,01/24 2000 UNVr PO Gabapentin 300 MG .STK-MED ONE 01/24 0314 DC PO 01/24 0315 Gabapentin 300 MG Q6P PRN 01/21 1100 AC 01/24 PO 0950 Ibuprofen 800 MG .STK-MED ONE 01/24 0314 DC PO 01/24 0315 Ibuprofen 800 MG Q6P PRN 01/23 1015 AC 01/24 PO 0952 Lorazepam 0.5 MG Q6-PRN PRN 01/22 1400 r 01/24 PO 01/29 1359 0414 Nicotine 4 MG Q2P PRN 01/22 1400 AC 01/24 PO 1207 Olanzapine 10 MG 01/24 UNVr PO Olanzapine 5 MG 0800 01/24 0800 AC 01/24 PO 0950 Olanzapine 7.5 MG 01/23 2200 DC 01/23 PO 2236 Olanzapine 2.5 MG Q4 HRS NEEDED PRN 01/22 1500 AC 01/24 PO 1207 Propranolol HCl 10 MG BID 01/21 1053 AC 01/24 PO 0951 Vital Signs Date Time Temp Pulse Resp B/P B/P Pulse O2 O2 Flow FiO2 Mean Ox Delivery Rate 01/24 1251 89 140/80 01/24 0951 97.6 78 16 136/76 01/24 0805 97.6 78 136/76 01/23 2236 148/86 01/23 2009 97.9 67 148/86 01/23 1550 73 136/85 A: Chart, progress notes, labs, vital signs and medication list reviewed. Vital signs within normal limits. No new lab results today. Clindamycin 300mg Q8H started x 15 doses for tooth infection. Per nursing report, patient continues with insomnia and tooth pain. Considered filing 3-day paper d/t concerns that she will not be able to pay for meds post- discharge. Patient seen at 3:35PM. Patient resting in bed. Cooperative. Reports 10/10 tooth pain. Contributes lack of sleep overnight to pain. Mood "I don't feel good." Affect constricted, sad. Reports she had thought about signing a 3-day paper last night due to feeling hopeless about the circumstances she will need to face once discharge - homelessness, no means to food stamps or health converage ( recently lost state insurance ID card and food stamp card). States she called DDS office multiple times today but could not reach anyone there. Reports continued AH, but describes these are less severe in intensity. States that earier today she was drinking a diet coke and a male voice said that the "D-C" on the bottle stood for "dumb c*nt." States AH is not command in nature but is inappropriate and distressing at times. Denies VH. Reports intermittent passive SI, denies plan or intent. Reports feeling hopeless and helpless, denies feeling guilty or worthless. Rates depression a 8/10 (10 being the worst). Rates anxiety a 5/10 (10 being the worst). Denies homicidal ideation. Continues believing there is a conspiracy against her by the police and FBI. + paranoia. Thought process linear. Cognition grossly intact. Insight/judgement poor to fair. She reports tolerating medications well, denies SEs. Agreeable to increasing Zyprexa from 7.5mg QHS to 10mg QHS. Will continue Zyprexa 5mg QAM and 2mg PRNs Q4H for hallucinations/paranoia/mood stabilization. Reported past failed trials of Trazodone for insomnia (up to 150mg at bedtime). Reviewed risk/benefit/se profiles of Remeron w/ patient for insomnia. Patient verbalized understanding and agreeable to trial. Also will start PRN Tylenol #3 for severe pain, given continued reports of tooth pain. Patient agreeable. P: -continue monitoring for safety, mood, psychosis, SI. -start Remeron 7.5mg QHS for insomnia. -start PRN Tylenol #3 Q6H PRN for severe tooth pain/NTE 3 doses in 24 hours. -start Gabapentin 400mg TID for anxiety/discomfort. Decrease PRN Ativan 0.5mg from 4 doses daily to 2 doses daily. -increase Zyprexa 7.5mg QHS to 10mg QHS for psychosis/mood stabilization. Continue 5mg QAM and 2.5mg PRNS. Increase AM dose for continued hallucinations over weekend. -Per [employer], continue contact with [facility] for temp housing. -dispo per primary team.
[2017-01-24 16:05] VITALS: BP 124/77
--- NOTE | 2017-01-24 18:59 | NUR ---
PT IS CALM, COOPERATIVE WITH STAFF AND PEERS, AND COMPLIANT WITH UNIT RULES. BOTH IN AND OUT OF [place], INTERACTING WELL WITH OTHERS. MOOD IS STABLE, AFFECT APPEARS EUTHYMIC TO FULL RANGE, COMMUNICATION IS ORGANIZED AND APPEARS NORMAL IN ALL RESPECTS, AND APPETITE IS NORMAL. PT MADE A PASSIVE SI COMMENT AT 1600 VITALS, AND WAS SUBSEQUENTLY CONTRACTED FOR SAFETY.
[2017-01-24 19:56] VITALS: BP 135/79
--- NOTE | 2017-01-25 07:42 | NUR ---
PATIENT SLEPT 1/2 NIGHT OR LESS; GIVEN PRN ATIVAN 0.5 AND TYLENOL #3 AT 2330, POOR EFFECT; GIVEN MOTRIN 800MG NEURONTIN 3O0MG AT 0238, PATIENT AGAIN AWAKE AFTERWARDS BUT APPEARED SLEEPY; C/O SEVERE HUNGER AND THIRST, WAS GIVEN CRACKERS AND WATER TWICE, ASKED ABOUT ZYPREXA SIDE EFFECTS.
[2017-01-25 08:40] VITALS: BP 141/78
[2017-01-25 12:34] VITALS: BP 120/74
--- NOTE | 2017-01-25 13:06 | CP SOUTH PROGRESS NOTE PSYCH ---
Psych (Inpt) Progress Note Progress Note Include the following elements, when applicable: Involvement in the active treatment of the patient with behavioral observations of the patient and the patient's response to the treatment. Review of the ongoing treatment process in the context of the treatment plan. Indication of how multi-disciplinary staff members are carrying out the treatment plan. Plans for future interventions and recommendations for revision of the treatment plan. Liaison with other physicians/providers. Progress Note: Patient seen chart reviewed d/w nursing staff She c/o depression and si with plan to hang self, also reports CAH, poor sleep. Med compliant no se reported. she requesting adj in her pain meds. CF, ASA cooperative fair eye contact. soft slow speech depressed mood congruent dysphoric affect. linear +si with plan denies hi +AH denies vt hallucinations or paranoia. i/j limited a/p bp with psychosis r/be/se/alt d/w her and she agrees to increase remeron for sleep and gabapentin for pain/anxiety
--- NOTE | 2017-01-25 13:33 | NUR ---
PT IS COMPLIANT AND COOPERATIVE WITH UNIT RULES. PT IS OUT IN THE COMMUNTIY INTERACTING WELL WITH STAFF AND PEERS. PT IS ATTENDING GROUPS. PT MOOD IS STABLE WITH A FULL RANGE AFFECT. PT DENIES SI THOUGHTS.
[2017-01-25 15:52] VITALS: BP 137/81
[2017-01-25 20:11] VITALS: BP 132/83
--- NOTE | 2017-01-25 21:26 | NUR ---
PT HAS BEEN QUIET AND WITHDRAWN, BUT HAS BEEN PRESENT IN THE [place] WATCHING TV. SHE HAS BEEN COMPLIANT WITH STAFF AND UNIT RULES AND HAS HAD NO ISSUES. PT HAS DENIED ANY THOUGHTS OF SI WHEN ASKED BY STAFF.
--- NOTE | 2017-01-26 07:17 | NUR ---
PATIENT WAS AGAIN AWAKE SEVERAL TIMES DURING THE NIGHT, REPORTING EXTREME HUNGER; SHE WAS GIVEN PRN NEURONTIN AT 0128.
[2017-01-26 12:26] VITALS: BP 118/78
--- NOTE | 2017-01-26 13:09 | NUR ---
PT IS OUT IN THE COMMUNITY INTERACTING WELL WITH STAFF AND PEERS. PT IS COMPLAINT AND COOPERATIVE WITH UNIT RULES. PT MOOD IS STABLE WTIH A FULL RANGE AFFECT. PT IS NOT ATTENDING GROUPS TODAY. PT DENIES SI THOUGHTS.
--- NOTE | 2017-01-26 13:45 | CP SOUTH PROGRESS NOTE PSYCH ---
Psych (Inpt) Progress Note Progress Note Include the following elements, when applicable: Involvement in the active treatment of the patient with behavioral observations of the patient and the patient's response to the treatment. Review of the ongoing treatment process in the context of the treatment plan. Indication of how multi-disciplinary staff members are carrying out the treatment plan. Plans for future interventions and recommendations for revision of the treatment plan. Liaison with other physicians/providers. Progress Note: Patient seen chart reviewed d/w nursing staff she reports poor sleep as well as rib pain with AH and paranoid thoughts. medication compliant reports increased appetite. denies si/hi. does states minor improvements since she arrived to the hospital. CF, dressed in hospital gown, cooperative fair eye contact. normal speech. "a little better" mood anxious mood denies si/hi +AH and paranoia. i/j limited BP will add scheduled benadryl at bedtime which she is asking for sleep, also increase am zyprexa for AH and paranoia,
[2017-01-26 16:14] VITALS: BP 139/83
[2017-01-26 20:15] VITALS: BP 144/89
--- NOTE | 2017-01-26 21:04 | NUR ---
Patient on the unit. Interacts with staff and peers. Patient is calm and coopertaitve with medication and unit rules. Patient reports loose bowel movements, HOD ordered C-Diff culture secondary to antibiotic therapy. Patient appetite good.
--- NOTE | 2017-01-27 05:27 | NUR ---
PT CONSTANTLY ASKING FOR MEDICATIONS. IBUPROFEN 800MG GIVEN FOR TOOTH ACHE. ZYPREXA GIVEN PER PT. REQUEST. THEN COMES BACK OUT REQUESTING ATIVAN FEELING ANXIOUS.
[2017-01-27 07:39] VITALS: BP 136/77
--- NOTE | 2017-01-27 07:58 | CP SOUTH PROGRESS NOTE PSYCH ---
Psych (Inpt) Progress Note Progress Note Include the following elements, when applicable: Involvement in the active treatment of the patient with behavioral observations of the patient and the patient's response to the treatment. Review of the ongoing treatment process in the context of the treatment plan. Indication of how multi-disciplinary staff members are carrying out the treatment plan. Plans for future interventions and recommendations for revision of the treatment plan. Liaison with other physicians/providers. Progress Note: I discussed this patient's progress to date, current mental status, treatment process in the context of the treatment plan, and discharge planning with staff/ team in the daily morning inpatient team meeting. I also met with the patient myself in individual session. Current Medications Sig/Rosalio Start time Last Medication Dose Route Stop Time Status Admin Al Hydroxide/Mg 30 ML Q4-6 PRN PRN 01/21 1100 AC Hydroxide PO Clindamycin 300 MG Q8 01/23 2200 AC 01/27 PO 01/28 1401 0714 Diphenhydramine HCl 50 MG AT BEDTIME PRN 01/26 1345 AC 01/26 PO 2159 Gabapentin 600 MG 0800,1400,01/25 1400 AC 01/26 PO 1914 Gabapentin 300 MG Q6P PRN 01/21 1100 AC 01/26 PO 1841 Ibuprofen 800 MG Q6P PRN 01/23 1015 AC 01/27 PO 0202 Lorazepam 0.5 MG Q6-PRN PRN 01/22 1400 AC 01/27 PO 01/29 1359 0337 Mirtazapine 15 MG AT BEDTIME 01/25 2200 AC 01/26 PO 2158 Nicotine 4 MG Q2P PRN 01/22 1400 AC 01/27 PO 0327 Olanzapine 10 MG 01/27 0800 AC PO Olanzapine 10 MG 01/24 2200 AC 01/26 PO 2158 Olanzapine 5 MG 01/24 0800 DC 01/26 PO 0924 Olanzapine 2.5 MG Q4 HRS NEEDED PRN 01/22 1500 AC 01/27 PO 0111 Propranolol HCl 10 MG BID 01/21 1053 AC 01/26 PO 2158 Vital Signs Date Time Temp Pulse Resp B/P B/P Pulse O2 O2 Flow FiO2 Mean Ox Delivery Rate 01/27 739 97.4 91 136/77 01/26 2158 98.2 85 16 144/89 01/26 2015 98.2 85 144/89 01/26 1614 87 139/83 01/26 1226 92 118/78 01/26 0924 89 132/83 A: Chart, progress notes, vital signs and medication list reviewed. Vital signs within normal limits. No new lab results today. This past weekend Zyprexa was increased to 10mg BID for paranoia/hallucinations; Remeron increased to 15mg QHS for insomnia; PRN Benadryl 50mg QHS added for insomnia; Gabapentin increased to 600mg TID for anxiety. Patient seen at 8AM. Describes mood as "not too bad." Appeared eager to disclose SI w/ plan to hang self w/ belt from over weekend to this financial writer. States she continues to have these thoughts intermittently. Shared this information nonchalantly. Gave safety promise while on unit. Affect calm, blunted, non- labile. Reports AH of negative voices saying "mean things." Denies AH are command in nature or threatening. Denies VH. Denies HI. Continues to believe there is a conspiracy against her, that police and FBI are out to harm her. + paranoia. She is unable to state how this delusion would negatively impact her life outside of the hospital. States conspiracy has been ongoing x 2 years; appears fixed in nature. Insight/judgement limited. Reports slightly improved sleep, states she was woken up by a loud peer on the unit. Appetite is "great." Energy level, "not bad." States this weekend was the first time she consistently attended to adls, showered, brushed teeth, washed clothes without prompting. Rates depression a 6/10 (10 being worst). Rates anxiety a 10/10 (10 being worst) . Denies feeling hopeless, worthless or guilty. Admits to feeling helpless given circumstance of homelessness. Reports tolerating medication changes well, denies SEs. States tooth pain is better controlled with combo of increased Gabapentin and Ibuprofen. Rates pain a 3-4/10 (10 being worst). Patient agreeable to increasing Inderal 10mg BID to TID for anxiety. Will monitor response to increased Zyprexa 10mg QAM (first dose today). Pt w/ hx bipolar d/o with psychotic features, r/o cluster b traits, presently homeless with limited resources with continued mood symptoms and psychosis. Continues to require inpatient hopsitalization for safety, further stabilization , dispo planning. P: -cont monitoring for safety, mood, psychosis, SI. -increase Inderal 10mg BID to TID for anxiety; d/c PRN Ativan. -cont Zyprexa 10mg BID for hallucinations/paranoia/mood stabilization. -cont PRN Benadryl and Remeron 15mg QHS for insomnia. -cont Gabapentin 600mg TID for anxiety/discomfort. -cont pain management as ordered. - cont antbx as ordered for tooth infxn. -dispo planning per primary team.
[2017-01-27 12:28] VITALS: BP 151/92
--- NOTE | 2017-01-27 13:32 | NUR ---
PT IS A/OX3, CALM AND COOPERATIVE, COMMUNICATION IS ORGANIZED AND CLEAR, MOOD IS DEPRESSED WITH EUTHYMIC AFFECT, COMPLAINTS OF AUDITORY RENAE STATING "THE FBI KEEPS TRYING TO GET INSIDE MY HEAD." PT HAS SUICIDAL THOUGHTS AND CAME TO STAFF TO REPORT IT AND STATES SHE FEELS SAFE ON UNIT. DENIES HI AT THIS TIME. PT HAS BEEN OUT ISOLATED IN ROOM SLEEPING MOST OF DAY.
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
--- NOTE | 2017-01-27 15:03 | SOCIAL WORKER PROG NOTE PSYCH ---
Social Work Progress Note Progress Note Phoned [facility] #[phone], Joy and Ifeoma are both out today. Called on-call number for Ifeoma, bioinformatics programmer to complete phone screening for Debbie. Left voicemail asked for call back ([phone]). Phoned [facility] in [place] [phone] - Sergio - phoned and left voicemail to complete phone screening, asked for call back to [phone].
[2017-01-27 16:05] VITALS: BP 137/89
[2017-01-27 19:54] VITALS: BP 142/97
--- NOTE | 2017-01-27 19:59 | NUR ---
[facility]. SHE IS SOCIAL WITH STAFF AND PEERS. PT IS PLEASANT AND COOPERATIVE WITH STAFF AND UNIT RULES. PT HAS NOT REPORTED ANY ABNORMAL THOUGHTS TO STAFF, AND NO ABNORMAL BEHAVIOR HAS BEEN OBSERVED. PT HAS EXPRESSED PASSIVE THOUGHTS OF SI, STATING "I THINK ABOUT IT, BUT THERES NOTHING I CAN DO HERE". RN WAS NOTIFIED.
--- NOTE | 2017-01-28 07:55 | NUR ---
PT UP MULTIPLE TIMES. PT BELIEVES THE FBI IS STALKING HER. PT RECEIVED MULTIPLE PRNs. PT SLEPT ON AND OFF.
--- NOTE | 2017-01-28 10:28 | SOCIAL WORKER PROG NOTE PSYCH ---
Social Work Progress Note Progress Note Pt made plans to have her state card and SNAP card sent to [facility], as she won't have an address for awhile and if discharged she will stop by the unit to get the card. They will send it out today, but I was told it could take up to a week to arrive. Pt continues to be vague, and appears to struggle with depersonalization, and is delusional about the FBI following her, which is the driving force in her becoming transient. Pt is slow to make improvements in regards to psychotic status. Waiting to hear back from crisis [facility] Rashawn Chauhan and Amada.
--- NOTE | 2017-01-28 11:58 | SOCIAL WORKER PROG NOTE PSYCH ---
Social Work Progress Note Progress Note JACQUE SMITH [id number] 1965 JACQUE SMITH [id number] Pended Authorization # Client Authorization # Type of Request [id number] CONCURRENT Date of Admission/ Start of Services Requested From Submission Date 01/21/2017 01/28/2017 01/28/2017
--- NOTE | 2017-01-28 12:05 | CP SOUTH PROGRESS NOTE PSYCH ---
Psych (Inpt) Progress Note Progress Note Include the following elements, when applicable: Involvement in the active treatment of the patient with behavioral observations of the patient and the patient's response to the treatment. Review of the ongoing treatment process in the context of the treatment plan. Indication of how multi-disciplinary staff members are carrying out the treatment plan. Plans for future interventions and recommendations for revision of the treatment plan. Liaison with other physicians/providers. Progress Note: I discussed this patient's progress to date, current mental status, treatment process in the context of the treatment plan, and discharge planning with staff/ team in the daily morning inpatient team meeting. I also met with the patient myself in individual session. Current Medications Sig/Rosalio Start time Last Medication Dose Route Stop Time Status Admin Al Hydroxide/Mg 30 ML Q4-6 PRN PRN 01/21 1100 AC Hydroxide PO Benztropine Mesylate 1 MG Q4 HRS NEEDED PRN 01/27 1715 AC PO Clindamycin 300 MG Q8 01/27 2200 AC 01/28 PO 01/28 1401 0717 Clindamycin 300 MG Q8 01/23 2200 DC 01/27 PO 01/28 1401 1433 Diphenhydramine HCl 50 MG AT BEDTIME PRN 01/26 1345 AC 01/27 PO 2213 Fluphenazine HCl 2.5 MG Q4 HRS NEEDED PRN 01/28 1215 UNVr PO Gabapentin 400 MG ONE TIME ONE 01/27 1530 DC 01/27 PO 01/27 1531 1519 Gabapentin 600 MG 0800,1400,01/25 1400 AC 01/28 PO 0911 Gabapentin 300 MG Q6P PRN 01/21 1100 DC 01/28 PO 0051 Ibuprofen 800 MG .STK-MED ONE 01/28 0143 DC PO 01/28 0144 Ibuprofen 800 MG .STK-MED ONE 01/27 1746 DC PO 01/27 1747 Ibuprofen 800 MG Q6P PRN 01/23 1015 AC 01/28 PO 0911 Lorazepam 0.5 MG ONE TIME ONE 01/27 1700 DC 01/27 PO 01/27 1701 1656 Mirtazapine 15 MG AT BEDTIME 01/25 2200 AC 01/27 PO 2213 Nicotine 4 MG Q2P PRN 01/22 1400 AC 01/28 PO 1122 Olanzapine 10 MG 0800 01/27 0800 AC 01/28 PO 0911 Olanzapine 10 MG 2200 01/24 2200 AC 01/27 PO 2213 Olanzapine 2.5 MG Q4 HRS NEEDED PRN 01/22 1500 DC 01/27 PO 1433 Perphenazine 2 MG Q4 HRS NEEDED PRN 01/27 1715 DC PO Propranolol HCl 10 MG 0800,1400,01/27 1400 AC 01/28 PO 0911 Vital Signs Date Time Temp Pulse Resp B/P B/P Pulse O2 O2 Flow FiO2 Mean Ox Delivery Rate 01/28 0911 98.2 88 16 142/97 01/27 2019 88 142/97 01/27 1954 98.2 88 142/97 01/27 1605 84 137/89 01/27 1433 87 151/92 01/27 1228 87 151 A: Chart, progress notes, labs, vital signs and medication list reviewed. Borderline HTN. No new lab results today. Per nursing reports, overnight the patient did not sleep d/t paranoia that FBI is out to get her. Patient seen at 11:50AM. Reports she does not feel well emotionally. Describes mood lability which is noted throughout interview, observed crying, irritable, sad. Speech slightly pressured, hyperverbal. Intermittent eye contact. Quite somatic. Focused on resuming PRN Ativan for anxiety. Upon further discussion of her anxiety, she identified that it is driven by racing thoughts, poor sleep, and mood swings. Provided education on trials of mood stabilizers, i.e. [place], Tegretol and Depakote. Reviewed risks/benefits/SEs of each, in addition to routine blood work required for each. Patient refused trialing any medication requiring blood work d/t a fear of needles and hx of poor f/u with providers. Emphasized to patient that we could introduce a low dose, take a level on unit, and if efficacious at a subtherapeutic level, intensive blood monitoring would not be required. She refused recommendation again. Requests to restart Lexapro. Informed her that restarting Lexapro while experiencing hallucinations could worsen present hallucinations and mood lability. She accepted this answer. Reports continued AH of voices laughing at her. Denied AH to be command in nature or threatening. States historically that when her mood stabilizes her AH worsens. Endorsed VH of a shadow early this morning. Pt did not comment on continued delusion of FBI following her. Pt willing to start an additional antipsychotic PRN while scheduled Zyprexa continues to take effect. Reports past failed trials on Haldol and Trilafon. Pt agreeable to Prolixin. SEs/risks, including irreversible movement disorders reviewed. Reports feeling hopeless and helpless. Denies feeling worthless or guilty. Reports passive SI, denies plan or intent. Denies HI. Reports having adequate energy. Sleep is poor. Appetite is "really big." Patient tolerating medications well ,denies SEs. Agreeable to above medication adjustments. P: -monitor for safety, mood, psychosis, SI. -start PRN Prolixin 2.5mg Q4H for agitation/psychosis. -cont Zyprexa 10mg BID for psychosis, will consider increasing over recommended dosing guideline if patient agreeable and continues with persistent psychotic symptoms. -cont educating patient on mood stabilizers; if patient willing to trial, will start. -dispo planning per primary team. -Benadryl 50mg PRN QHS, may rpt x 1 for insomnia.
[2017-01-28 12:38] VITALS: BP 122/74
--- NOTE | 2017-01-28 13:33 | NUR ---
PT HAS BEEN WITHDRAWN AND ISOLATIVE IN ROOM MOST OF THE DAY- SLEEPING ON AND OFF. PT DENIES SI AT THIS TIME, NO C/O. NO SIGNS OF DELUSIONAL/PARANOID THOUGHT CONTENT NOTED AT THIS TIME. PT IS INTERACTING WITH OTHERS WHEN PRESENT IN COMMUNITY. PT HAS ATTENDED ONE GROUP. VITALS ARE STABLE, APPETITE IS GOOD.
[2017-01-28 16:04] VITALS: BP 124/84
--- NOTE | 2017-01-28 17:34 | SOCIAL WORKER PROG NOTE PSYCH ---
Social Work Progress Note Progress Note Phone screening done with [facility]. Ifeoma (director) stated she will be in touch about bed availability.
[2017-01-28 20:19] VITALS: BP 119/86
--- NOTE | 2017-01-28 21:23 | NUR ---
PT IS IN A MORE ALERT MOOD THIS EVENING. SHE SHARED THAT THE NEW MEDICATION IS MAKING HER FEEL A LOT MORE HAPPY BUT STILL HAVING HALLUCNATIONS. SHE WENT TO WRAP UP GROUP THIS EVENING AND HAS BEEN INTERACTING POSTIVELY WITH PEERS AND STAFF. SHE DENIES THOUGHTS TO HURT HERSELF WHEN ASKED.
--- NOTE | 2017-01-29 05:46 | NUR ---
DIFFICULTY WITH SLEEP MEDICATED WITH IBUPROFEN FOR PAIN BENADRYL ORDERED DID GET SOME SLEEP UP AT 0545.
[2017-01-29 08:26] VITALS: BP 109/68
--- NOTE | 2017-01-29 10:10 | CP SOUTH PROGRESS NOTE PSYCH ---
Psych (Inpt) Progress Note Progress Note Include the following elements, when applicable: Involvement in the active treatment of the patient with behavioral observations of the patient and the patient's response to the treatment. Review of the ongoing treatment process in the context of the treatment plan. Indication of how multi-disciplinary staff members are carrying out the treatment plan. Plans for future interventions and recommendations for revision of the treatment plan. Liaison with other physicians/providers. Progress Note: I discussed this patient's progress to date, current mental status, treatment process in the context of the treatment plan, and discharge planning with staff/ team in the daily morning inpatient team meeting. I also met with the patient myself in individual session. Current Medications Sig/Rosalio Start time Last Medication Dose Route Stop Time Status Admin Al Hydroxide/Mg 30 ML Q4-6 PRN PRN 01/21 1100 AC Hydroxide PO Benztropine Mesylate 1 MG Q4 HRS NEEDED PRN 01/27 1715 AC 01/28 PO 2309 Clindamycin 300 MG Q8 01/27 2200 DC 01/28 PO 01/28 1401 1326 Diphenhydramine HCl 50 MG AT BEDTIME PRN 01/26 1345 AC 01/29 PO 0146 Fluphenazine HCl 2.5 MG Q4 HRS NEEDED PRN 01/28 1215 AC 01/28 PO 2309 Gabapentin 600 MG 0800,1400,01/25 1400 AC 01/29 PO 0849 Ibuprofen 800 MG .STK-MED ONE 01/29 0146 DC PO 01/29 0147 Ibuprofen 800 MG .STK-MED ONE 01/28 2040 DC PO 01/28 2041 Ibuprofen 800 MG .STK-MED ONE 01/28 1438 DC PO 01/28 1439 Ibuprofen 800 MG Q6P PRN 01/23 1015 AC 01/29 PO 0850 Mirtazapine 15 MG AT BEDTIME 01/25 2200 AC 01/28 PO 2153 Nicotine 4 MG Q2P PRN 01/22 1400 AC 01/29 PO 0849 Olanzapine 10 MG 0800 01/27 0800 AC 01/29 PO 0849 Olanzapine 10 MG 01/24 2200 AC 01/28 PO 2153 Perphenazine 2 MG Q4 HRS NEEDED PRN 01/27 1715 DC PO Propranolol HCl 10 MG 0800,1400,01/27 1400 AC 01/29 PO 0849 Vital Signs Date Time Temp Pulse Resp B/P B/P Pulse O2 O2 Flow FiO2 Mean Ox Delivery Rate 01/29 0849 83 109/68 01/29 0826 97.3 83 109/68 01/28 2038 98.6 98 16 119/86 01/28 2019 98.6 98 119/86 01/28 1604 86 124/84 01/28 1326 98.2 98 16 122/74 01/28 1238 98 122/74 A: Chart, progress notes, labs, vital signs and medication list reviewed. Borderline HTN. No new lab results today. Patient seen at 11:12AM, together with Yesenia Grande LCSW. Patient reports an improvement in depression since starting Prolixin PRNs yesterday. Reports mood is "happy." Affect [place] in range, non-labile. Speech less pressured, still fast. Eye contact appropriate. Offers no physical complaints today. Reports a decrease in AH. States these are not distressing, threatening or command in nature. AHs continue to say mean things to her but she did not elaborate beyond that. Reports infrequent VH of shadows. Denies that these are distressing. Denies passive and active suicidal ideation. Denies homicidal ideation. Reports her anxiety continues to be high and driven by fixed belief that police/FBI are after her; concerned that her life will never be the same, i.e. that she will be able to work again, find a place to live, and stay out of the hospital. Frequentky during conversation, patient appeared overwhelmed when talking about how she would obtain all of these goals. Encouraged her to think about her short term goals - she was able to identify her priority as finding a room in the [place] to rent. We also discussed temporary housing options such as [facility], and using such kind of placement as an opportunity to search for more permanent housing options. She was in favor of utilizing [facility] and also exploring IOP options. She later informed me that she continues to sleep poorly, with a recent worsening of restless legs. Patient was agreeable to increasing Gabapentin from 600mg TID to 900mg TID to further target anxiety/restlessness/discomfort. We agreed on starting Klonopin 1mg at bedtime PRN for insomnia. Patient shows continued resistence to trialing mood stabilzers. Reports tolerating recent introduction of Prolixin well and denies SEs. No evidence of akathisia or movement disorder. Patient made request to switch from scheduled Zyprexa to scheduled Prolixin as she felt it is working better on hallucinations. We agreed to decrease scheduled Zyprexa by half today to a total of 10mg/day, and by half tomorrow for a total of 5mg/day, then discontinue; additionally, Prolixin 5mg BID will start today in addition to continuing 2.5mg PRN doses (NTE 4 doses/24 hours) for AVH/paranoia. If well tolerated today, will consider increasing Prolixin by 5-10mg tomorrow for a daily total of 15-20mg daily (in divided doses). Patient made aware again of the risks/SEs of Prolixin including irreversible movement disorders. Education was provided on rationale for pairing Prolixin with scheduled and PRN Cogentin. Patient verbalized understanding of education and agreeable to medication changes. P: -cont monitoring for safety, mood, SI and psychosis. -increase Gabapentin 600mg TID to 900mg TID. -start cross taper of Zyprexa and Prolixin. See above for dosing schedule. -add Klonopin 1mg at bedtime PRN for insomnia. -Tylenol #3 PRN discontinued. Tylenol 650mg Q6H PRN started for mild pain. -cont contact w/ [facility] and explore IOP options.
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
--- NOTE | 2017-01-29 12:03 | NUR ---
PT IS PRESENT ON THE UNIT, CALM, COOPERATIVE AND PLEASANT, MEDICATION AND TREATMENT OVERALL HOWEVER NOT ALWAYS ATTENDING GROUPS, COOPERATIVE, MOOD STABLE WITH FULL RANGE AFFECT, REPORTED FEELING BETTER ON MEDICATIONS, ALTHOUGH STATING POOR SLEEP CONTINUES.
[2017-01-29 12:04] VITALS: BP 105/72
[2017-01-29 12:30] VITALS: BP 105/72
[2017-01-29 15:51] VITALS: BP 115/70
--- NOTE | 2017-01-29 17:11 | SOCIAL WORKER PROG NOTE PSYCH ---
Social Work Progress Note Progress Note Call placed to [facility] to check on IOP referral and message left for return call
[2017-01-29 20:01] VITALS: BP 137/88
--- NOTE | 2017-01-29 20:49 | NUR ---
PT IS VISIBLE ON UNIT, MAKING FREQUENT PHONE CALLS AND SOCIALIZING WITH PEERS. COOPERATIVE AND COMPLIANT WITH STAFF. NO COMPLAINTS OR SI REPORTED. PT HAS A STABLE MOOD AND FULL RANGE AFFECT.
--- NOTE | 2017-01-30 04:30 | NUR ---
AWAKE ON AND OFF THROUGHOUT SHIFT ASKING FOR SNACKS AND MEDS.
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
[2017-01-30 07:57] VITALS: BP 126/68
--- NOTE | 2017-01-30 10:33 | NUR ---
PT IS STABLE WITH FULL RANGE OF AFFECT. PT HAS BEEN OUT IN THE COMMUNITY AND INTERACTING WITH PEERS/STAFF APPROPRIATELY THIS AM SHIFT. PT HAS BEEN INTERMITTENTLY ATTENDING GROUPS THIS AM. REPORTED THAT HER GOAL WAS TO "CONTINUE WITH ADJUSTING MY MEDICATIONS". PT REPORTS THAT HER MEDICATION LAST NIGHT HELPED HER TO SLEEP YET SHE STILL HAD SYMPTOMS OF RESTLESSNESS. VS ARE STABLE AND DENIES ANY SI/HI TO THIS MHW.
[2017-01-30 12:12] VITALS: BP 119/75
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
[2017-01-30 16:33] VITALS: BP 119/73
[2017-01-30 20:08] VITALS: BP 111/73
--- NOTE | 2017-01-30 22:19 | NUR ---
PT IS VISIBLE ON UNIT, SOCIALIZING WITH PEERS AND SNACKING IN THE KITCHEN. COOPERATIVE AND COMPLIANT WITH STAFF. ATTENEDED WRAP UP MEETING AND AA THIS EVENING. AT 1600 VITAL SIGNS, PT DID DISCLOSE SI BUT CONTRACTS FOR SAFETY WHILE ON THE UNIT. NO COMPLAINTS OR SI REPORTED. PT HAS A STABLE MOOD AND FULL RANGE AFFECT.
--- NOTE | 2017-01-31 07:27 | NUR ---
PT FEELS PROLIXIN IS HELPING HER. SHE SLEPT UNTIL 0600. PT RECEIVED MOTRIN 800 AT 0500, AND PROLIXIN 2.5 AND COGENTIN 1 AT 0600.
[2017-01-31 07:45] VITALS: BP 117/75
--- NOTE | 2017-01-31 10:56 | CP SOUTH PROGRESS NOTE PSYCH ---
Psych (Inpt) Progress Note Progress Note Include the following elements, when applicable: Involvement in the active treatment of the patient with behavioral observations of the patient and the patient's response to the treatment. Review of the ongoing treatment process in the context of the treatment plan. Indication of how multi-disciplinary staff members are carrying out the treatment plan. Plans for future interventions and recommendations for revision of the treatment plan. Liaison with other physicians/providers. Progress Note: I discussed this patient's progress to date, current mental status, treatment process in the context of the treatment plan, and discharge planning with staff/ team in the daily morning inpatient team meeting. I also met with the patient myself in individual session. Current Medications Sig/Rosalio Start time Last Medication Dose Route Stop Time Status Admin Acetaminophen 650 MG Q6-PRN PRN 01/29 1145 AC PO Al Hydroxide/Mg 30 ML Q4-6 PRN PRN 01/21 1100 AC Hydroxide PO Benztropine Mesylate 1 MG 0800,1400,01/31 1400 AC PO Benztropine Mesylate 1 MG Q4 HRS NEEDED PRN 01/30 0730 DC 01/31 PO 0559 Benztropine Mesylate 1 MG 0800,01/29 2200 DC 01/31 PO 0907 Clonazepam 1 MG AT BEDTIME NEED.. 01/29 1145 AC 01/29 PO 02/05 1144 2223 Fluphenazine HCl 10 MG 01/30 2200 AC 01/30 PO 2236 Fluphenazine HCl 5 MG 01/30 0800 AC 01/31 PO 0907 Fluphenazine HCl 2.5 MG Q4 HRS NEEDED PRN 01/28 1215 AC 01/31 PO 0559 Gabapentin 900 MG 0800,1400,01/29 1400 AC 01/31 PO 0836 Ibuprofen 800 MG .STK-MED ONE 01/30 2015 DC PO 01/31 2016 Ibuprofen 800 MG Q6P PRN 01/23 1015 AC 01/31 PO 0501 Mirtazapine 15 MG AT BEDTIME 01/25 2200 AC 01/30 PO 2236 Nicotine 4 MG Q2P PRN 01/22 1400 AC 01/31 PO 0836 Propranolol HCl 10 MG AT BEDTIME NEED.. 01/30 2200 AC PO Propranolol HCl 10 MG 0800,1400,01/27 1400 AC 01/31 PO 0836 Vital Signs Date Time Temp Pulse Resp B/P B/P Pulse O2 O2 Flow FiO2 Mean Ox Delivery Rate 02/01 836 83 117/75 01/31 0745 96.3 83 117/75 01/30 2014 11173 01/31 2008 97.8 95 111/73 01/30 1633 87 119/73 01/30 1326 97.8 88 16 119/75 01/30 1212 88 119/75 A: Chart, progress notes, labs, vital signs and medication list reviewed. No new lab results today. Vital signs within normal limits. Patient seen at 10:15AM together with Yesenia Grande LCSW, on the date of discharge. She presents alert and oriented to person, place, time and situation. Affect full, non-labile, appropriate. Speech normal in rate, tone and volume. Eye contact appropriate. She offered no complaints. Reports sleeping well throughout the night, with one brief awakening but was able to return to sleep. Denied further restless legs, but complained of mild stiffness in lower legs. Gait steady, fluid w/ full range of motion. Reports this occured prior to starting Prolixin. Patient states she has not had much physical activity while on unit. Instructed patient to continue taking cogentin as prescribed, and encouraged her to bring this to the attention of her outpatient psychiatric provider, if symptom doesn't subside. She reports feeling well. Denies acute symptoms of anxiety and depression. Denies feeling hopeless, helpless, worthless or guilty. Denies passive and active suicidal ideation, plans, intent. Denies homicidal ideation. She states and also believes she will not harm herself or others. Reports hearing only 1 voice today, it was non-threatening and non-command in nature. Denies visual hallucinations. No evidence of paranoia or delusional thoughts. Thought process linear, goal-directed. Reports having good energy and good appetite. She reports tolerating medications well, denies acute side effects. She is agreeable to continue taking. She reports feeling safe and ready for discharge. P: -discharge today into self-care. -pt advised to call 211 for housing assistance/jail intake until securing stable housing. -all discharge prescriptions e-prescribed to [facility] today, per pt request. -f/u at [facility] on 02/10/17 at 11am for intake and on 02/14/17 at 1: 30pm for medication evaluation with Dr. Dhillon. -pt strongly advised that in the event of an emergency to call [phone]/go to nearest emergency department; pt verbalized understanding of instruction.
[2017-01-31] MEDS ORDERED: REMERON15 M2 PO (11:14)
[2017-01-31] MEDS ORDERED: BENZTROPINE MESY1 M1 PO ×2 (11:14→12:08)
[2017-01-31] MEDS ORDERED: NICORELIEF4 MG PO (11:14)
[2017-01-31] MEDS ORDERED: GABAPENTIN300 M2 PO (11:14)
[2017-01-31] MEDS ORDERED: KLONOPIN1 M1 PO (11:14)
[2017-01-31] MEDS ORDERED: PROPRANOLOL HCL10 M1 PO (11:14)
[2017-01-31] MEDS ORDERED: FLUPHENAZINE HCL5 M1 PO (11:14)
[2017-01-31] MEDS ORDERED: FLUPHENAZINE H PO (11:14)
--- NOTE | 2017-01-31 11:18 | Patient Discharge Instructions ---
Psych Discharge Inst General Discharge Information Reason for Admission: Command auditory hallucinations and thoughts to self-harm. Psy Discharge Primary Diag+ Bipolar disorder, MRE depressed with psychotic features Psy Discharge Secondary Diag+ R/O Schizoaffective disorder; Nicotine use disorder; Hx of endometriosis. Summary Tests/Major Procedures Lab ALT 63 U/L H 01/20/17 2250 Alkaline Phosphatase 156 U/L H 01/20/17 2250 Cholesterol 206 MG/DL H 01/20/17 2250 Cholesterol/HDL Ratio 5 % H 01/20/17 2250 LDL Cholesterol, Calc 131 mg/dL H 01/20/17 2250 Triglycerides 169 mg/dL H 01/20/17 2250 Urine Test NEGATIVE 01/20/17 UNK Studies Pending at DC: N/A Patient Instructions Contact Information Your Psychiatrist [facility] [place] MOLINA GUPTA,BOUBACAR Spangler/MARIA L SHERIFF APRN. * If you are experiencing an emergency related to this hospitalization, please call [phone] to contact the treating psychiatrist or the psychiatrist-on- call. * To Request a copy of your medical records, please contact the Medical Records Department at [phone]. * To request results of studies pending at the time of discharge, please call [phone]. * Continue your Medications until directed to stop by your Healthcare provider. General Medication Information Please continue to take your new medications and your continued home medications , unless otherwise indicated on your discharge medication list, or unless directed by your or JOHN to stop them. Special Instructions: DIET: Regular. ACTIVITY LEVEL: No restrictions. Advance Directives Does the Patient have Medical Advance Directives No/Refused further info Does Pt have Psychiatric Advance Directives? No/Refused further info Does Patient have a Designated Surrogate Decision Maker: No Information About Psychiatric Advance Directives Provided? Refused Discharge Plan Post Hospital Treatment Plan: Provider Referral Service Date: 02/10/17 Referred To: Outpatient Psychiatry Notes: [facility] outpatient program Intake 02/10/17 11am with Mirta [address] (T)[phone] Provider Referral Service Date: 02/14/17 Referred To: Outpatient Psychiatry Notes: [facility] appt. with Dr. Dhillon 02/14 1:30pm [address] (T) [phone] In the event of an emergency, call /go to the nearest emergency department.
--- NOTE | 2017-01-31 11:33 | NUR ---
PT IS TENTATIVELY SCHEDULED TO DISCHARGE TODAY, PRESENT WITHIN COMMUNITY, SOCIAL WITH PEERS AND STAFF, NO ISSUES OR COMPLAINTS REPORTED OR OBSERVED. WHEN ASKED DIRECTLY DENIES SI/RENAE/HI AT THIS TIME. DISCHARGE DISPO DISCUSSED WITH PATIENT AND HAS A POSITIVE UNDERSTANDING AND VERBALIZES MOTIVATION, FUTURE ORIENTED, MOOD STABLE WITH FULL RANGE AFFECT, HAS POSITIVE UNDERTSTANDING OF MEDICATION REGIMEN AND INFORMATION PACKETS RE: SI PREVENTION, DEPRESSION, RENAE GIVEN AND PT RESOURCE GUIDE REVIEWED WITH ALL OTHER PERTINANT INFORMATION I.E. [facility], [facility], SUICIDE HOTLINE NUMBERS ETC AND VERBALIZED UNDERSTANDING AND NO QUESTIONS.
[2017-01-31 12:22] VITALS: BP 130/86
[2017-01-31 13:01] VITALS: BP 130/86
--- NOTE | 2017-01-31 13:42 | SOCIAL WORKER PROG NOTE PSYCH ---
Social Work Progress Note Progress Note Spoke with Sergio from [facility]. He reported there were no beds available today. Spoke with Leanna Mario from [facility] who reported the same, but shared she could continue to keep in touch with them to see if anything changed. Josseline Coronado APRN and I spoke with Debbie together. Debbie reported that she is feeling well. Mariposa one voice today. Feels rested. Reports some stiffness in her legs, but not restlessness. Talked about housing options. Shared info above about there not being any beds. Asked if she would call 211? She basically refused stating she "wouldn't make it" in a mcc. Asked if there were any friends or relatives I could help her find a number for? We attempted 1 relative, but the number was not in service. The other friend's number was not listed. Debbie stated she is fine with leaving and looking for a room to rent. She was given some newspapers today to look through and has spent time this morning, making calls. She is hopeful she can find something and seems goal directed. Due to her not knowing where she would end up. We set up outpatient services at [place]. She was given an appt. for intake on 02/10 and a med eval on 02/14.
--- NOTE | 2017-01-31 15:10 | NUR ---
1510 DISCHARGED HOME SEF CARE
--- NOTE | 2017-01-31 16:04 | DISCHARGE SUMMARY REPORT-PSYCH ---
Visit Information Visit Dates/Diagnosis' Admission Date: 01/21/17 Discharge Date: 01/31/17 Reason for Admission: Command auditory hallucinations and thoughts to self-harm. Psy Discharge Primary Diag: Bipolar disorder, MRE depressed with psychotic features Psy Discharge Secondary Diag: R/O Schizoaffective disorder; Nicotine use disorder; Hx of endometriosis. Hospital Course Significant Lab Findings: Lab ALT 63 U/L H 01/20/17 2250 Alkaline Phosphatase 156 U/L H 01/20/17 2250 Cholesterol 206 MG/DL H 01/20/17 2250 Cholesterol/HDL Ratio 5 % H 01/20/17 2250 LDL Cholesterol, Calc 131 mg/dL H 01/20/17 2250 Triglycerides 169 mg/dL H 01/20/17 2250 Urine Test NEGATIVE 01/20/17 UNK Course Complications: None. Consultations: The patient was seen for admission history and physical by quality assurance monitor final Dr. Eleuterio Wells. Please see his note for additional information. Allergies: Coded Allergies: aspirin (Severe, DIFF BREATHING 09/23/16) morphine (Severe, DIFFICULTY BREATHING 09/23/16) procaine (ANAPHYLAXIS 01/20/17) Uncoded Allergies: ?SOMETHING IN EPIDURAL (Severe, HYPOTENSIVE AND SWELLING 11/25/10) Hospital Course/TX Response: The patient was monitored on the unit for safety, mood, suicidal ideation, command auditory hallucinations and delusional thought content. She participated in multimodal treatments on the unit. Initially, she was started on Zyprexa 5mg BID for mood stabilization and psychosis. It was titrated up to 10mg BID. At this dose she continued to experience auditory hallucinations and paranoia that the police and FBI were after her. Prolixin 2.5mg Q4H PRNs were added, as she reported poorly tolerating both Haldol and Trilafon in the past. She reported tolerating the Prolixin well, and noticed an improvement in her mood and a reduction in auditory hallucinations. She requested that Zyprexa be switched entirely to Prolixin to continue targeting mood and psychotic symptoms. Zyprexa was gradually tapered down and off. Scheduled Prolixin 5mg BID was added, and increased to 5mg daily and 10mg nightly. Cogentin 1mg BID was added for muscle stiffness. Gabapentin was increased from 300mg TID to 900mg TID for restless legs/ anxiety. Mirtazapine 7.5mg at bedtime was started for insomnia and increased to 15mg at bedtime. Klonopin 1mg at bedtime PRN was added for insomnia /anxiety with positive effect. Propranolol 10mg BID was increased to TID for anxiety/tremor. She reported tolerating medications well and was agreeable to continue taking them. She reported slight lower extremity stiffness, however stated this was present, prior to trial of Prolixin. She reported this did not impair her mobility. Her gait appeared steady. She was agreeable to continue taking Cogentin 1mg BID and was instructed to inform OPS prescriber if this continued. During the hospital course, the patient's mood and affect improved. Command auditory hallucinations and suicidal ideation remitted. She expressed continued auditory hallucinations much less intense in nature. She denied these were threatening or distressing. She denied further visual hallucinations. Thought process appeared moderately clearer. She did not identify any family or friends to have involved in her inpatient care while on the unit. She was in favor of following up with Outpatient Psychiatric Services for both medication management and weekly group, as she expressed she would be living in [place] and public transportation to [facility] 3 x weekly would be too expensive for her to finance. On the date of discharge, 01/31/17, the patient presented alert and oriented to person, place, time and situation. Affect full, non-labile, appropriate. Speech normal in rate, tone and volume. Eye contact good. She offered no complaints. Reported sleeping well throughout the night, with one brief awakening but was able to return to sleep. Denied further restless legs, but complained of mild stiffness in lower legs. Gait steady, fluid w/ full range of motion. Reported this occured prior to starting Prolixin. Patient stated she has not had much physical activity while on unit. Instructed patient to continue taking cogentin as prescribed, and encouraged her to bring this to the attention of her outpatient psychiatric provider if symptom does not subside. Denied acute symptoms of anxiety and depression. Denied feeling hopeless, helpless, worthless or guilty. Denied passive and active suicidal ideation, plans, intent. Denied homicidal ideation. She stated and also believes she will not harm herself or others. Reported hearing only 1 voice today, it was non-threatening and non- command in nature. Denied visual hallucinations. No evidence of paranoia or delusional thoughts. Thought process linear, goal-directed. Reported having good energy and a good appetite. She reported tolerating medications well, denied acute side effects. She is agreeable to continue taking. She reported feeling safe and ready for discharge. Discharge HBIPS - Tobacco Use Treatment Offered Post DC Medications Offered: Script Given-See Med List Post DC Tobacco Treatment Plan: Refused Tobacco Tx Pgm - EtOH/Drug Use D/O Treatment Offered Post DC Medications Offered: NA-No EtOH/Drug Use D/O Post DC EtOH/SubAbuse [place] Plan: NA-No EtOH/Drug Use D/O Metabolic Screening - Screen if on a Neuroleptic Medication - Metabolic screening should include: - Blood Pressure, BMI, Glucose or Hgb A1c, & a - Lipid profile from within the past 365 days. Metabolic Screening () Not Applicable, patient not on a neuroleptic. OR ([X]) Patient on a neuroleptic(s) . Enter below results for Glucose or Hemoglobin A1C, and lipid panel if obtained during the last 365 days. BMI: Blood Pressure: 130/86 Laboratory Results (If applicable): Lab Cholesterol 206 MG/DL H 01/20/17 2250 Cholesterol/HDL Ratio 5 % H 01/20/17 2250 Glucose 96 mg/dL 01/20/17 2250 LDL Cholesterol, Calc 131 mg/dL H 01/20/17 2250 Triglycerides 169 mg/dL H 01/20/17 2250 Discharge Instructions General Discharge Information Discharge Medications: Discharge Medications- (Dose, route, freq, indication): START taking these NEW Home Medications: Nicotine Polacrilex Dose: ORAL, EVERY 2 HOURS Qty: 1 Sent to (Nicorelief) 4 MG 4 Milligram NEEDED as needed for Refills: 0 Pharm 1 GUM nicotine craving Propranolol HCl Dose: ORAL, 0800,1400,2000 for Qty: 42 Sent to (Propranolol HCl) 10 10 Milligram tremors/anxiety Refills: 0 Pharm 1 MG TABLET Take 1 tab po TID. Clonazepam Dose: ORAL, AT BEDTIME Qty: 14 Printed (Klonopin) 1 MG 1 Milligram NEEDED as needed for Refills: 0 TABLET INSOMNIA/ANXIETY Take 1 tab po QHS PRN for insomnia/anxiety Gabapentin Dose: ORAL, 0800,1400,2000 for Qty: 126 Sent to (Gabapentin) 300 MG 900 Milligram discomfort/anxiety Refills: 0 Pharm 1 CAPSULE Take 3 caps (900mg) po TID. Mirtazapine Dose: ORAL, AT BEDTIME for Qty: 14 Sent to (Remeron) 15 MG 15 Milligram insomnia/depression Refills: 0 Pharm 1 TABLET Take 1 tab po QHS. Fluphenazine HCl Dose: ORAL, EVERY 4 HOURS Qty: 28 Sent to (Fluphenazine HCl) 2.5 Milligram NEEDED as needed for Refills: 0 Pharm 1 2.5 MG TABLET clear thoughts Take 1 tab po Q4H PRN for clear thoughts. NTE 2 doses/24 hours. Fluphenazine HCl Dose: ORAL, SEE INSTRUCTIONS Qty: 42 Sent to (Fluphenazine HCl) 5 5 Milligram for clear Refills: 0 Pharm 1 MG TABLET thoughts/hallucinations Take 1 tab (5mg) po QAM and 2 tabs (10mg) QHS. Benztropine Mesylate Dose: ORAL, TWICE DAILY for Qty: 28 Sent to (Benztropine 1 Milligram muscle stiffness Refills: 0 Pharm 1 Mesylate) 1 MG Take 1 tab po BID. TABLET STOP taking these DISCONTINUED Home Medications: Escitalopram Oxalate (Lexapro) Dose: ORAL, DAILY for DEPRESSION 10 MG TABLET 1 Tablet Reason Stopped: Per Doctor Decision Propranolol HCl (Propranolol Dose: ORAL, TWICE DAILY for TREMORS HCl) 10 MG TABLET 1 Tablet Reason Stopped: Changed Dose Diazepam (Valium) 2 MG TABLET Dose: ORAL, as needed for ANXIETY 2 Milligram Reason Stopped: Per Doctor Decision Quetiapine Fumarate (Seroquel Dose: ORAL, DAILY for SLEEPINESS XR) 300 MG TAB.ER.24H 600 Milligram PER PT 600MG NIGHTLY Reason Stopped: Per Doctor Decision Lurasidone HCl (Latuda) 120 MG Dose: ORAL, DAILY for MOOD TABLET 120 Milligram Reason Stopped: Per Doctor Decision 1: [facility], [address] [place] [address] Your Preferred Pharmacy [facility] [address] [place] [address] Multiple Neuroleptics: ([X]) Not Applicable OR Document below three failed attempts at monotherapy, or a plan to taper to monotherapy, or augmentation of Clozapine. () Patient's Diet: Regular. Patient's Activity: No restrictions. DC Disposition: Discharged into self care. Patient advised to call 211 as needed for housing assistance. Recommendations: The patient was advised to please take her medications as prescribed. She was advised to follow up with scheduled outpatient psychiatry appointments at . She was advised that in the event of an emergency to call 211/ 911/go to the nearest emergency department. The patient verbalized understanding of all instructions. Referred To: Provider Referral Service Date: 02/10/17 Referred To: Outpatient Psychiatry Notes: outpatient program Intake 02/10/17 11[place] [phone] Provider Referral Service Date: 02/14/17 Referred To: Outpatient Psychiatry Notes: [facility] appt. with Dr. Dhillon 02/14 1:30pm [address] [place] [phone] Copies To: [facility]
== END 2017-01-31 15:15 | DRG 753 ==
LOC: ERH 21:12 → ERHI 01-21 10:47 → CP SOUTH 01-21 10:47 → ENTRNSPT 01-21 17:55 → EDTRNSPTSTS 01-21 18:11 → CP SOUTH 01-21 18:24 → CMPTRNSPT 01-21 18:25 → CP SOUTH 01-23 18:20
PROVIDERS: Emergency Medicine; ADMIT Psychiatry & Neurology Addiction Medicine
DX: F31.5 Bipolar disorder, current episode depressed, severe, with psychotic features (principal); Z72.0 Tobacco use; Z87.42 Personal history of other diseases of the female genital tract
CPT/HCPCS: 36415; 80307; 81001; 81025; 93005; 93010; G0480